=== PATIENT | female | born 1940 | race Caucasian/White ===

== ENCOUNTER → 2016-05-05 | Outpatient (CLI) | payer MEDICARE, OTHER ==
[2016-05-05 11:36] LABS: Appearance,Urine Clear (Clear); Bacteria,Urine Moderate /hpf; Bilirubin,Urine Negative (Negative); Glucose,Urine (UA) Negative (Negative); Ketones,Urine Negative (Negative); Leukocyte Esterase,Urine Negative (Negative); Mucus,Urine Rare /hpf; Nitrite,Urine Positive (Negative); Particle Count 24100; Protein,Urine Negative (Negative); RBC,Urine <1 /hpf (0-5); Specific Gravity,Urine 1.005 (1.001-1.035); Squamous Epithelial Cell,Urine 1 /hpf (0-4); UA Billing (MACRO vs. MICRO) MICRO; Urobilinogen,Urine <2.0 mg/dL (<2.0); WBC,Urine 2 /hpf (0-5)
[2016-05-05 11:44] LABS: Basophils # (A) 0.1 k/uL (0-0.2); Basophils % (A) 1 %; CH 30.3; CHCM 32.5; Eosinophils # (A) 0.1 k/uL (0-0.7); Eosinophils % (A) 2 %; HCT 40.8 % (34.0-46.0); HDW 2.15; HGB 13.1 gm/dL (11.4-16.0); Luc # (Auto) 0.15; Luc % (Auto) 2; Lymphocytes # (A) 0.9 k/uL (1.0-4.8); Lymphocytes % (A) 14 %; MCHC 32.1 g/dL (31.0-37.0); MCV 93.6 fL (80.0-100.0); Mean Platelet Volume 7.6; Monocytes # (A) 0.4 k/uL (0-1.0); Monocytes % (A) 7 %; Neutrophils # (A) 4.7 k/uL (1.3-7.7); Neutrophils % (A) 75 %; RBC 4.36 m/uL (3.80-5.40); RDW 13.5 % (11.5-15.5); WBC 6.3 k/uL (3.8-10.6); WBC (Perox) 6.59
[2016-05-05 12:22] LABS: Anion Gap 12 mmol/L; Blood Urea Nitrogen 23 mg/dL (7-17); Calcium 9.1 mg/dL (8.4-10.2); Carbon Dioxide 27 mmol/L (22-30); Chloride 102 mmol/L (98-107); Glucose 98 mg/dL (74-99); Non-African American GFR(MDRD) >60 (>60 ml/min/1.73 sqM); Potassium 4.3 mmol/L (3.5-5.1); Sodium 141 mmol/L (137-145)
== END | disposition home or self-care (01) ==
LOC: LABPAT 10:52
PROVIDERS: ATTEND Obstetrics & Gynecology
DX: Z01.810 Encounter for preprocedural cardiovascular examination (principal); N39.3 Stress incontinence (female) (male); I10 Essential (primary) hypertension; E03.9 Hypothyroidism, unspecified
CPT/HCPCS: 80048; 81001; 83735; 85025; 86850; 86900; 86901; 87077; 87086; 87186

== ENCOUNTER 2016-05-13 08:55 | Day surgery (SDC) | payer MEDICARE, OTHER ==
[2016-05-08 11:41] VITALS: BMI 23.6
--- NOTE | 2016-05-12 09:21 | HP ---
DATE OF ADMISSION: This is a 75-year-old white female, 2, para 2 -0-0-2, status post CHAYO/BSO in 1972 for benign disease. The patient has a long-standing history of symptomatic grade 4 cystocele, and has been using a pessary for many years. Patient states that at this time, she is not interested in continued pessary treatment and would like to proceed with surgical repair. She is menopausal, not sexually active, and is receiving low dose estrogen replacement therapy. She has no vasomotor symptoms. She states that she has at least one urinary tract infection monthly, does have the loss of urine with cough or sneeze and uses approximately 8 to 9 pads daily. Her last Pap smear was in the remote past and within normal limits. The remaining review of systems is negative. Past medical history is significant for anxiety, increasing symptomatic cystocele, hypertension and hypothyroidism, Parkinson's disease, and thyroid cancer in the past, she also has a right rib margin neuralgia. CURRENT MEDICATIONS: 1. Baby aspirin daily, discontinued 2 weeks ago. 2. Bactrim DS as needed for urinary tract infections. 3. Calcium chews daily. 4. Detrol 1 mg daily. 5. Premarin 0.9 mg oral tablet daily. 6. Prevacid 30 mg delayed release tablet daily. 7. Sinemet orally daily. 8. Synthroid 1/2 tab daily. 9. Toprol-XL 50 mg tablet once daily. 10. Vitamin B12, folic acid, vitamin D3 daily. 11. Zoloft orally daily. Allergies include AMOXICILLIN to which she reports a rash, ATIVAN to which she reports becoming delirious, DARVON to which she reports headaches and GI upset, ERYTHROMYCIN to which she reports a rash, IODINE to which she reports a rash, LEVAQUIN to which she reports diarrhea and GI upset, VASOTEC to which she reports a headache and cough and XANAX to which she reports becoming emotionally uncontrollable. Family history is significant for arrhythmia, cardiomegaly, hypertension, mitral valve prolapse, and progressive supranuclear palsy. Reproductive history is significant for 2 full term vaginal deliveries in the past, both unremarkable. SOCIAL HISTORY: Patient is , her 's name is Payam, she has never been a smoker. She denies alcohol or illicit drug use. On examination, this is a pleasant, but somewhat anxious individual, 5 feet 1.75 inches, 128 pounds, BMI 23, blood pressure 150/100, pulse 78. The general physical exam reveals normal skin tone, no rashes or lesions, HEENT exam is negative. No thyromegaly, no cervical lymphadenopathy, reasonably good dentition. Chest is clear to auscultation in all andersen anteriorly and posteriorly. Breast exam reveals breasts to be atrophic, symmetric, no skin dimpling or nipple discharge, no axillary adenopathy, no discernible lesions or masses. The abdomen is soft and nontender, no hepatosplenomegaly, active bowel sounds, no CVA tenderness. The chest is clear in all andersen anteriorly and posteriorly to auscultation. Cardiac exam reveals regular rate and rhythm with no murmur, click or rub. The extremities reveal good range of motion, good strength, normal peripheral pulses, no edema. On pelvic exam, the external genitalia is reasonably well estrogenized and age appropriate. There are no pelvic lesions or masses noted. There is a grade 4 cystocele noted, good vaginal cuff support, no obvious rectocele. Rectal exam reveals no hemorrhoids, no rectal masses, good sphincter tone, FIT negative stool. No obvious pelvic lymphadenopathy. IMPRESSION: Long-standing symptomatic grade 4 cystocele with incontinence. The patient has been evaluated by Dr. Cooper who believes that a sling procedure is also called for at the time of this grade 4 cystocele repair. The patient has been counseled thoroughly regarding the risks of surgery to include, but not be exclusive of bleeding, infection, perforation or damage to the bladder or ureters, anesthetic issues including aspiration, nerve damage, even . She understands the risk of possible urinary retention after our surgery and this has been discussed with Dr. Cooper as well. All questions are answered. We will proceed therefore with grade 4 cystocele repair along with a sling procedure per Dr. Cooper tomorrow on 05/13/2016 at [facility].
[~2016-05-13 08:55] MED LIST: FAMOTIDINE 20 MG/2 ML VIAL IV PRN; HYDROmorphone 1 MG/ML 1 ML SYRINGE IVP PRN; LACTATED RINGERS 1,000 ML IV SCH; LIDOCAINE 1% 20 ML VIAL (10MG/ML) FOR IV START INTRADERMA PRN; MIDAZOLAM 2 MG/2 ML VIAL IV PRN; ONDANSETRON 4 MG/2 ML VIAL IVP PRN; ceFAZolin 1,000 MG in DEXTROSE/WATER 1 50ML.BAG IV ONE
[2016-05-13] MEDS ORDERED: CARBIDOPA-LEVODOPA 25-100 MG 1 EACH TAB PO SCH ×2 (09:00→21:00)
[2016-05-13] MEDS ORDERED: LIDOCAINE 1% 20 ML VIAL (10MG/ML) FOR IV START INTRADERMA ONE (09:22)
[2016-05-13] MEDS ORDERED: fentaNYL (PF) 50 MCG/ML 2 ML AMP ONE (09:48)
[2016-05-13] MEDS ORDERED: PROPOFOL 10 MG/ML 20 ML VIAL IV ONE (09:48)
[2016-05-13] MEDS ORDERED: MIDAZOLAM 2 MG/2 ML VIAL ONE (09:48)
[2016-05-13] MEDS ORDERED: VASOPRESSIN 20 UNIT/ML 1 ML VIAL SQ ONE (10:09)
[2016-05-13] MEDS ORDERED: diphenhydrAMINE 50 MG/ML 1 ML VIAL IVP PRN ×2 (10:29→10:56)
[2016-05-13] MEDS ORDERED: NALOXONE 0.4 MG/ML 1 ML VIAL IV PRN (10:29)
[2016-05-13] MEDS ORDERED: ONDANSETRON 4 MG/2 ML VIAL IVP PRN (10:29)
[2016-05-13] MEDS ORDERED: KETOROLAC 30 MG/ML 1 ML VIAL IVP PRN (10:56)
--- NOTE | 2016-05-13 10:56 | P.OP ---
Date of Procedure: 05/13/16 Preoperative Diagnosis: Symptomatic cystocele, mixed urinary incontinence. Postoperative Diagnosis: Same Procedure(s) Performed: Cystocele repair, transvaginal tape Anesthesia: spinal Surgeon: Ebony Patton Cnc Programmer #1: Paco Cooper Estimated Blood Loss (ml): 150 IV fluids (ml): 700 Urine output (ml): 100 Pathology: none sent Condition: stable Disposition: PACU Description of Procedure: Patient is brought to the operating suite after duramorph spinal is placed without issue. She is put in the dorsal lithotomy position. Antibiotics given. The appropriate timeout is performed to assure proper patient and procedural identification. The perineal body and lower abdomen are prepped and draped in usual sterile fashion. Weighted speculum was placed into the vagina. The uterosacral cardinal ligament dimples are identified and grasped with Allis clamps. The vagina is opened between the 2 Allis clamps with a scalpel. The vaginal mucosa is then injected with a dilute Pitressin solution. Metzenbaum scissors are used to undermine the mucosa to approximately 1.5 cm inferior to the urethra. Allis clamps are used to hold the tissue bilaterally. A sponge rolled finger is used to separate the overlying mucosa from the underlying fascial plane. Vaughan catheter is then placed. 2-0 Vicryl sutures used in an interrupted fashion to bring the fascial edges together thereby eliminating the large grade 4 cystocele. Metzenbaum scissors are used to trim the redundant mucosa. At this time Dr. Boston sits and proceeds with his transvaginal tape procedure, please see separately dictated note for details. When this is completed, 2-0 Vicryl sutures used in a running locking fashion to close the vaginal mucosa for good approximation. Estimated blood loss 150 mL' s. Vaughan is clear. All sponge needle and enhancement counts are correct at the end of the procedure. Patient is brought back to recovery room in very good condition with stable vital signs including 106/55, pulse of 57. The vagina is packed with a half inch iodophor gauze with basic tracing and a. Head is placed.
[2016-05-13] MEDS ORDERED: LACTATED RINGERS 1,000 ML IV ONE (10:57)
--- NOTE | 2016-05-13 11:06 | P.OP ---
Date of Procedure: 05/13/16 Preoperative Diagnosis: Stress urinary incontinence Postoperative Diagnosis: Same Procedure(s) Performed: Transvaginal tape Anesthesia: YAN Surgeon: Paco Cooper Estimated Blood Loss (ml): 50 Pathology: none sent Condition: stable Disposition: PACU Indications for Procedure: The patient is a 75-year-old female with stress urinary incontinence and a grade [address] Patton will repair the cystocele and I'll do a transvaginal tape for her stress incontinence Description of Procedure: The patient was previously brought to the operating suite given a general anesthetic and Dr. Patton proceeded with an anterior repair 2 a very large cystocele. The vaginal mucosa was previously open. I dissect lateral the bladder neck bilaterally. I make 2 incisions in the inguinal crease at the level clitoris. I passed the transvaginal tape introducer through the inguinal incisions through the obturator foramen around into the vagina making sure not to buttonhole the vaginal mucosa. A irrigate the bladder to make sure there is no bleeding which would signal bladder injury. The urine is clear. I attached the transvaginal tape the introducers and pull back through the obturator foramen. The graft lay in the mid urethra. I excised the redundant after the inguinal crease and close inguinal crease with 4-[address] Patton then closes the vaginal mucosa. Vaginal packing is placed. The patient's awake and returned recovery room good condition. Blood loss for my procedures 50 mL. The urine remains clear postoperatively. The patient is awake and returned recovery room.
[2016-05-13] MEDS: METOPROLOL SUCCINATE (ER) 50 MG TAB.ER.24H PO SCH (14:22)
[2016-05-13] MEDS: CARBIDOPA-LEVODOPA 25-100 MG 1 EACH TAB PO SCH ×2 (14:23→20:58)
[2016-05-14] MEDS ORDERED: LEVOTHYROXINE 75 MCG TAB PO SCH (06:30)
[2016-05-14] MEDS ORDERED: CARBIDOPA-LEVODOPA 25-100 MG 1 EACH TAB PO SCH (07:00)
--- NOTE | 2016-05-14 07:27 | P.DS ---
Providers Date of admission: 05/13/16 Expected date of discharge: 05/14/16 Attending physician: Ebony Patton Primary care physician: [facility] Course: This is a 75-year-old white female who presented with an increasing history of stress urinary incontinence and grade 4 cystocele. She elected to undergo surgical palliation, cystocele repair along with transvaginal tape. She has multiple medical problems, and is managed by Dr. Bryan. Preoperative clearance was given. Please see my dictated history and physical for details. Patient was admitted and underwent a cystocele repair along with a transvaginal tape procedure per Dr. Boston. She did well intraoperatively, she was given a spinal with Duramorph to aid in postoperative analgesia. The vagina was packed with iodoform gauze, and Vaughan catheter placed. Please see our to separately dictated operative notes for further details. This morning the patient is doing well. Vaginal pack is removed and Vaughan catheter has been discontinued. She is tolerating regular diet and is passing flatus. Her pain is well managed. There is only scant vaginal flow noted. Vital signs have been normal and she has remained afebrile. There is no CVA tenderness, chest is clear, abdomen is soft and nontender. Bladder training has commenced this morning. If patient does well, she will be discharged home later today. She will resume all of her home medications, and use [id number] products as needed for any cramping or pain. I have asked her to call me with any urinary retention, with any vaginal bleeding, with any pain not alleviated by [id number] products, or indeed with any concerns or difficulties. She will follow-up in the office with me in 2 weeks, and will see Dr. Boston postoperatively as per his recommendations. Patient Condition at Discharge: Good Plan - Discharge Summary Discharge Medication List Aspirin [Adult Low Dose Aspirin EC] 2 tab PO DAILY 05/08/16 [History] Carbidopa-Levodopa 25-100 mg [Sinemet 25-100] 1 each PO QID 05/08/16 [History] Cholecalciferol [Vitamin D3] 2,000 unit PO BID 05/08/16 [History] Cyanocobalamin (Vitamin B-12) [Vitamin B-12] 1,000 mcg PO DAILY 05/08/16 [ History] Estrogens, Conjugated [Premarin] 0.3 mg PO DAILY 05/08/16 [History] L.acidoph,Paracasei, B.lactis [Probiotic] 1 each PO DAILY 05/08/16 [History] Levothyroxine Sodium [Synthroid] 0.15 mg PO DAILY 05/08/16 [History] Metoprolol Succinate (ER) [Toprol Xl] 50 mg PO DAILY 05/08/16 [History] Omeprazole [PriLOSEC] 20 mg PO AC-BID 05/08/16 [History] Sertraline [Zoloft] 50 mg PO DAILY 05/08/16 [History] Tolterodine [Detrol] 2 mg PO DAILY 05/08/16 [History] Follow up Appointment(s)/Referral(s): Ebony Patton MD [STAFF PHYSICIAN] - 2 Weeks
--- NOTE | 2016-05-14 08:37 | P.PN ---
Progress Note - Text Date: 05/14/2016 Time: 717 The patient is status post, cystocele repair Vital signs stable VAS: 0-10 Patient has no complaints of pain. The patient incurred some minimal itching yesterday, this itching is now subsiding. Pain meds to be managed by service.
[2016-05-14] MEDS: METOPROLOL SUCCINATE (ER) 50 MG TAB.ER.24H PO SCH (08:50)
[2016-05-14] MEDS ORDERED: ACETAMINOPHEN TAB 325 MG TAB PO PRN (10:58)
[2016-05-14] MEDS: CARBIDOPA-LEVODOPA 25-100 MG 1 EACH TAB PO SCH (12:32)
[2016-05-14 13:10] VITALS: BP 153/75; PULSE 72; RESP 16; TEMP 96.7
[2016-05-15] MEDS ORDERED: LEVOTHYROXINE 75 MCG TAB PO SCH (06:30)
== END 2016-05-14 13:45 | disposition home or self-care (01) ==
LOC: OR 08:55 → 6PED 11:12 → OR 05-14 13:45
PROVIDERS: ATTEND Obstetrics & Gynecology
DX: N81.10 Cystocele, unspecified (principal); N39.3 Stress incontinence (female) (male); I10 Essential (primary) hypertension; K21.9 Gastro-esophageal reflux disease without esophagitis; E03.9 Hypothyroidism, unspecified; G20 Parkinson's disease; F39 Unspecified mood [affective] disorder; F41.9 Anxiety disorder, unspecified; R41.3 Other amnesia; Z79.82 Long term (current) use of aspirin; Z79.899 Other long term (current) drug therapy; Z88.6 Allergy status to analgesic agent; Z88.1 Allergy status to other antibiotic agents; Z88.5 Allergy status to narcotic agent; Z88.0 Allergy status to penicillin; Z88.8 Allergy status to other drugs, medicaments and biological substances; Z86.73 Personal history of transient ischemic attack (TIA), and cerebral infarction without residual deficits; Z85.850 Personal history of malignant neoplasm of thyroid
CPT/HCPCS: 57240; 57288; C1771; J1200; J2405; J0690; 86850; 86900; 86901

== ENCOUNTER → 2017-01-12 | Outpatient (CLI) | payer MEDICARE, OTHER ==
--- NOTE | 2017-01-13 17:56 | BD ---
EXAMINATION TYPE: MG DEXA axial skeleton. DATE OF EXAM: 01/12/2017 COMPARISON: NONE CLINICAL HISTORY: 76-year-old female with known osteoporosis Height: 5 FT 2 1/2 IN Weight: 129 FRAX RISK QUESTIONS: Alcohol (3 or more units per day): NO Family History (Parent hip fracture): NO Glucocorticoids (More than 3mos): NO (Ex: prednisone, prednisolone, methylprednisolone, dexamethasone, and hydrocortisone). History of Fracture in Adulthood: NO Secondary Osteoporosis: 1. Type 1 Diabetes: NO 2. Hyperthyroidism: NO 3. Menopause before 45: YES 4. Malnutrition: NO 5. Chronic liver disease: NO Rheumatoid Arthritis: NO Current Tobacco Use: NO RISK FACTORS HISTORY OF: Postmenopausal woman: TOTAL HYST AGE 23 Take estrogen and/or progesterone medications: YES How lon YEARS MEDICATIONS: Thyroid Medications: YES Which medication: SYNTHROID How Lon YEARS Additional Medications: SYNTHROID, PREMARIN, CALCIUM, ZOLOFT, CINNAMIN, DETRAL, VIT D ,BABY ASPIRIN Additional History: THYROID CANCER AND PARKINSANS EXAM MEASUREMENTS: Bone mineral densitometry was performed using the [employer] System. Bone mineral density as measured about the Lumbar spine is: ----- L1-L4(G/cm2): 1.527 T Score Values are as follows: ----- L2: 1.9 ----- L3: 3.5 ----- L4: 4.2 ----- L1-L4: 2.9 BASELINE Bone mineral density about the R hip (g/cm2): 1.220 Bone mineral density about the L hip (g/cm2): 1.181 T Score values are as follows: -----R Neck: 1.3 -----L Neck: 1.0 -----R Total: 1.7 -----L Total: 1.3 BASELINE HERE IMPRESSION: Normal (Values between +1 and -1 indicate normal bone mass). Consider repeating this study in 5 year s or sooner if there is some new clinical indication. NOTE: T-SCORE=SD OF THE YOUNG ADULT MEAN.
--- NOTE | 2017-01-14 09:45 | MM ---
Reason for exam: screening (asymptomatic). Last mammogram was performed 1 year and 6 months ago. History: Patient is postmenopausal and history of other cancer. Taking estrogen for 34 years 1 month beginning at age 32. Physical Findings: A clinical breast exam by your physician is recommended on an annual basis and results should be correlated with mammographic findings. MG Screening Mammo w CAD Bilateral CC and MLO view(s) were taken. Prior study comparison: June 28, 2015, bilateral MG 3d screening mammo w/cad. May 24, 2014, bilateral MG screening mammo w CAD. There are scattered fibroglandular densities. There is chronic nodularity in the right breast. No significant changes when compared with prior studies. ASSESSMENT: Negative, BI-RAD 1 RECOMMENDATION: Routine screening mammogram of both breasts in 1 year.
== END | disposition home or self-care (01) ==
LOC: RADMAMWWP 14:23
PROVIDERS: ATTEND Internal Medicine Geriatric Medicine
DX: Z12.31 Encounter for screening mammogram for malignant neoplasm of breast (principal); M81.0 Age-related osteoporosis without current pathological fracture
CPT/HCPCS: 77080; G0202

== ENCOUNTER → 2017-05-04 | Outpatient (CLI) | payer MEDICARE, OTHER ==
--- NOTE | 2017-05-04 19:44 | CT ---
EXAMINATION TYPE: CT brain wo con DATE OF EXAM: 05/04/2017 COMPARISON: NONE HISTORY: Headache with right sided eye and shoulder pain post injury [address] DLP: 1121 mGycm Automated exposure control for dose reduction was used. FINDINGS: There is mild cerebral atrophy. There are a few small areas of hypodensity in the right internal caps ule that measure up to 5 mm. There is no midline shift. There is 6 mm area of hypodensity in the ante rior left internal capsule. There is no sign of intracranial hemorrhage. The calvarium is intact. The re is 1 cm area of hypodensity in the [place] left internal capsule. 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 NO HEMORRHAGE.
== END | disposition home or self-care (01) ==
LOC: RADCTMAIN 17:50
PROVIDERS: ATTEND Internal Medicine Geriatric Medicine
DX: I67.82 Cerebral ischemia (principal)
CPT/HCPCS: 70450

== ENCOUNTER → 2018-03-23 | Outpatient (CLI) | payer MEDICARE, OTHER ==
--- NOTE | 2018-03-23 13:57 | XR ---
EXAMINATION TYPE: XR ribs RT w pa chest xray DATE OF EXAM: 03/23/2018 CLINICAL HISTORY: Repeated falls with chest and right-sided rib pain. TECHNIQUE: Single frontal view of the chest is obtained. A frontal and oblique images of right-sided ribs are acquired. COMPARISON: None FINDINGS: There is no focal air space opacity, pleural effusion, or pneumothorax seen. The cardiac silhouette size is upper limits of normal with atherosclerotic thoracic aorta. The osseous structur es are intact. Cholecystectomy clips are noted. Dedicated images of right-sided ribs show acute minimally displaced fracture through posterior aspect right 10th rib. Just superior to this there is linear lucency suspicious for nondisplaced oblique fr acture through posterior lateral right ninth rib. Overlying soft tissue is unremarkable. IMPRESSION: 1. No acute cardiopulmonary process. 2. Acute minimally displaced fracture posterior lateral right 10th rib and acute nondisplaced oblique fracture posterior lateral right ninth rib.
--- NOTE | 2018-03-23 13:58 | XR ---
EXAMINATION TYPE: XR Hip Bilateral Complete DATE OF EXAM: 03/23/2018 CLINICAL HISTORY: Pain after several falls. TECHNIQUE: AP and frogleg views of the bilateral hips are obtained. COMPARISON: None. FINDINGS: There is no acute fracture/dislocation evident in either hip. Mild symmetric axial joint s pace loss is present bilaterally. No significant spurring is seen. Surgical clips and sutures overlie the visualized upper sacrum. Pubic symphysis is maintained. IMPRESSION: There is no acute fracture or dislocation in either hip.
== END | disposition home or self-care (01) ==
LOC: RADXRMAIN 13:02
PROVIDERS: ATTEND Internal Medicine
DX: S22.41XA Multiple fractures of ribs, right side, initial encounter for closed fracture (principal); R29.6 Repeated falls
CPT/HCPCS: 73521

== ENCOUNTER → 2018-08-13 | Outpatient (CLI) | payer MEDICARE, OTHER ==
[2018-08-13 19:03] LABS: Anion Gap 10.1 mmol/L (4.00-12.00); Carbon Dioxide 27.9 mmol/L (21.6-31.8); Potassium 3.8 mmol/L (3.5-5.5)
== END | disposition home or self-care (01) ==
LOC: LABWHC1 13:53
PROVIDERS: ATTEND Psychiatry & Neurology Neurology
DX: R41.0 Disorientation, unspecified (principal); R29.6 Repeated falls
CPT/HCPCS: 36415; 80048

== ENCOUNTER 2018-09-22 21:03 | Inpatient (IN) | payer MEDICARE, OTHER ==
[2018-09-22] MEDS ORDERED: SODIUM CHLORIDE 0.9% 500 ML 500 ML IV ONE (21:29)
[2018-09-22] MEDS ORDERED: QUEtiapine 50 MG TAB PO STA ×2 (21:40→23:29)
--- NOTE | 2018-09-22 21:56 | ED ---
Anxiety HPI - General Chief Complaint: Anxiety Stated Complaint: Petition Time Seen by Provider: 09/22/18 21:11 Source: police, EMS Mode of arrival: EMS - History of Present Illness Initial Comments: This patient is a 77-year-old woman with history of Parkinson's disease. She is brought for evaluation of 3 days of increasing anxiety/agitation as well as 3 days of insomnia. The patient did have recent medication change for her Parkinson's, her Sinemet was decreased from 4 times per day to 3 times per day and she was taken off of fludro cortisone. The patient is here with a caregiver who is giving most of the history. She does live at home with in-home caregivers who state that she has become increasingly agitated. The patient also is evidencing some delusional thought content that her is being mean to her, staff says that this is not the case. MD Complaint: anxiety, other -: days(s) Symptoms: other (Insomnia and agitation) Place: home Previous History of Same: Yes Severity: severe Quality: worsening Provoking factors: medication change Improves With: nothing Worsens With: nothing Associated symptoms: confusion - Related Data Home Medications: Home Medications Medication Instructions Recorded Confirmed Aspirin [Adult Low Dose Aspirin EC] 162 mg PO DAILY 05/08/16 09/22/18 Carbidopa-Levodopa 25-100 mg 1 tab PO HS 05/08/16 09/22/18 [Sinemet 25-100] Cholecalciferol [Vitamin D3] 2,000 unit PO HS 05/08/16 09/22/18 Estrogens, Conjugated [Premarin] 0.3 mg PO HS 05/08/16 09/22/18 L.acidoph,Paracasei, B.lactis 1 cap PO DAILY 05/08/16 09/22/18 [Probiotic] Omeprazole [PriLOSEC] 20 mg PO AC-BID 05/08/16 09/22/18 Calcium Carbonate [Calcium] 600 mg PO HS 09/22/18 09/22/18 Carbidopa-Levodopa 25-100 mg 2 tab PO BID 09/22/18 09/22/18 [Sinemet 25-100] Donepezil HCl [Aricept] 10 mg PO HS 09/22/18 09/22/18 Famotidine [Pepcid] 20 mg PO HS 09/22/18 09/22/18 Gabapentin [Neurontin] 200 mg PO HS 09/22/18 09/22/18 Levothyroxine Sodium [Synthroid] 150 mcg PO MOTUWETHFRSA 09/22/18 09/22/18 Levothyroxine Sodium [Synthroid] 225 mcg PO INTERIANO 09/22/18 09/22/18 Losartan Potassium [Cozaar] 25 mg PO BID 09/22/18 09/22/18 Metoprolol Succinate (ER) [Toprol 25 mg PO HS 09/22/18 09/22/18 Xl] Neclezyme-Forte 1 cap PO HS 09/22/18 09/22/18 Sertraline [Zoloft] 100 mg PO HS 09/22/18 09/22/18 Allergies/Adverse Reactions: Allergies Allergy/AdvReac Type Severity Reaction Status Date / Time diphenhydramine Allergy Unknown Verified 09/22/18 22:03 [From Benadryl] enalaprilat [From Vasotec] Allergy Unknown Verified 09/22/18 22:03 erythromycin base Allergy Unknown Verified 09/22/18 22:03 [From E-Mycin] hydrocodone Allergy Unknown Verified 09/22/18 22:03 ketorolac Allergy Unknown Verified 09/22/18 22:03 levofloxacin Allergy Unknown Verified 09/22/18 22:03 lorazepam [From Ativan] Allergy Unknown Verified 09/22/18 22:03 alprazolam [From Xanax] AdvReac Confusion Verified 09/22/18 22:03 codeine AdvReac Nausea & Verified 09/22/18 22:03 Vomiting diazepam [From Valium] AdvReac Unknown Verified 09/22/18 22:03 oxycodone [From Percocet] AdvReac Nausea & Verified 09/22/18 22:03 Vomiting Review of Systems ROS Statement: Those systems with pertinent positive or pertinent negative responses have been documented in the HPI. ROS Other: All systems not noted in ROS Statement are negative. Limitations: ROS unobtainable due to patients medical condition (ROS per caregiver) Constitutional: Denies: fever Respiratory: Denies: cough, dyspnea Cardiovascular: Denies: chest pain, palpitations, edema, syncope Gastrointestinal: Denies: abdominal pain, vomiting Musculoskeletal: Denies: back pain Neurological: Reports: as per HPI, confusion. Denies: headache Psychiatric: Reports: anxiety Past Medical History Past Medical History: Dementia, Hypertension Additional Past Medical History / Comment(s): parkisons, History of Any Multi-Drug Resistant Organisms: None Reported Past Surgical History: Hysterectomy Past Psychological History: Anxiety Smoking Status: Never smoker Past Alcohol Use History: None Reported Past Drug Use History: None Reported - Past Family History Father Family Medical History: No Reported History Mother Family Medical History: Coronary Artery Disease (CAD) General Exam General appearance: alert, anxious Head exam: Present: atraumatic, normocephalic Eye exam: Present: normal appearance, PERRL, EOMI. Absent: scleral icterus, conjunctival injection ENT exam: Present: mucous membranes dry Neck exam: Present: normal inspection, full ROM Respiratory exam: Present: normal lung sounds bilaterally. Absent: respiratory distress, wheezes, rales, rhonchi, stridor Cardiovascular Exam: Present: regular rate, normal rhythm, normal heart sounds. Absent: systolic murmur, diastolic murmur, rubs, gallop GI/Abdominal exam: Present: soft. Absent: tenderness, guarding, rebound Extremities exam: Present: normal inspection, normal capillary refill. Absent: pedal edema, calf tenderness Back exam: Present: normal inspection. Absent: vertebral tenderness Neurological exam: Present: alert, CN II-XII intact, other (Patient is tremulous). Absent: oriented X3 (Patient is oriented only to person), motor sensory deficit Psychiatric exam: Present: agitated Skin exam: Present: warm, dry, intact, normal color. Absent: rash Course Vital Signs 09/22/18 09/23/18 21:12 02:50 Temperature 98 F Pulse Rate 98 81 Respiratory 24 16 Rate Blood Pressure 174/100 127/82 O2 Sat by Pulse 100 100 Oximetry - Reevaluation(s) Reevaluation #1: 09/23/18 01:59 Patient continues to have insomnia and delusional thought content. Patient remains agitated despite Seroquel. Dr. Irvin galdamez to discuss admission Medical Decision Making - Medical Decision Making Patient is 77-year-old woman coming for evaluation after 3 days of insomnia and worsening agitation with psychotic symptoms. Patient recently had Seroquel added to her regimen though they had not been able to fern picker this medication from the pharmacy yet. She is given initial dose of this and she was briefly asleep then had been aroused and continued to be psychotic. Additional dose given. We had considered adding benzodiazepine but the patient has reportedly had paradoxic reaction to this medication in the past. The patient starting to have some improvement with additional Seroquel. Case discussed with , who will admit patient to have neurology and psychiatry consultation - Lab Data Result diagrams: 09/22/18 21:50 09/22/18 21:50 Lab Results 09/22/18 09/22/18 09/22/18 Range/Units 21:50 21:50 21:50 WBC 9.1 (3.8-10.6) k/uL RBC 4.41 (3.80-5.40) m/uL Hgb 12.2 (11.4-16.0) gm/dL Hct 39.9 (34.0-46.0) % MCV 90.4 (80.0-100.0) fL MCH 27.8 (25.0-35.0) pg MCHC 30.7 L (31.0-37.0) g/dL RDW 14.0 (11.5-15.5) % Plt Count 286 (150-450) k/uL Neutrophils % 73 % Lymphocytes % 15 % Monocytes % 9 % Eosinophils % 1 % Basophils % 0 % Neutrophils # 6.6 (1.3-7.7) k/uL Lymphocytes # 1.3 (1.0-4.8) k/uL Monocytes # 0.8 (0-1.0) k/uL Eosinophils # 0.1 (0-0.7) k/uL Basophils # 0.0 (0-0.2) k/uL PT (9.0-12.0) sec INR (<1.2) APTT (22.0-30.0) sec Sodium 140 (137-145) mmol/L Potassium 3.8 (3.5-5.1) mmol/L Chloride 106 (98-107) mmol/L Carbon Dioxide 23 (22-30) mmol/L Anion Gap 11 mmol/L BUN 25 H (7-17) mg/dL Creatinine 0.94 (0.52-1.04) mg/dL Est GFR (CKD-EPI)AfAm 68 (>60 ml/min/1.73 sqM) Est GFR (CKD-EPI)NonAf 59 (>60 ml/min/1.73 sqM) Glucose 94 (74-99) mg/dL Plasma Lactic Acid Lauri 1.4 (0.7-2.0) mmol/L Calcium 9.0 (8.4-10.2) mg/dL Total Bilirubin 0.6 (0.2-1.3) mg/dL AST 46 H (14-36) U/L ALT 20 (9-52) U/L Alkaline Phosphatase 113 (38-126) U/L Troponin I (0.000-0.034) ng/mL Total Protein 7.8 (6.3-8.2) g/dL Albumin 4.4 (3.5-5.0) g/dL Urine Color Urine Appearance (Clear) Urine pH (5.0-8.0) Ur Specific S[place] (1.001-1.035) Urine Protein (Negative) Urine Glucose (UA) (Negative) Urine Ketones (Negative) Urine Blood (Negative) Urine Nitrite (Negative) Urine Bilirubin (Negative) Urine Urobilinogen (<2.0) mg/dL Ur Leukocyte Esterase (Negative) Urine RBC (0-5) /hpf Urine WBC (0-5) /hpf Ur Squamous Epith Cells (0-4) /hpf Urine Mucus (None) /hpf 09/22/18 09/22/18 09/23/18 Range/Units 21:50 21:50 00:00 WBC (3.8-10.6) k/uL RBC (3.80-5.40) m/uL Hgb (11.4-16.0) gm/dL Hct (34.0-46.0) % MCV (80.0-100.0) fL MCH (25.0-35.0) pg MCHC (31.0-37.0) g/dL RDW (11.5-15.5) % Plt Count (150-450) k/uL Neutrophils % % Lymphocytes % % Monocytes % % Eosinophils % % Basophils % % Neutrophils # (1.3-7.7) k/uL Lymphocytes # (1.0-4.8) k/uL Monocytes # (0-1.0) k/uL Eosinophils # (0-0.7) k/uL Basophils # (0-0.2) k/uL PT 10.0 (9.0-12.0) sec INR 0.9 (<1.2) APTT 22.1 (22.0-30.0) sec Sodium (137-145) mmol/L Potassium (3.5-5.1) mmol/L Chloride (98-107) mmol/L Carbon Dioxide (22-30) mmol/L Anion Gap mmol/L BUN (7-17) mg/dL Creatinine (0.52-1.04) mg/dL Est GFR (CKD-EPI)AfAm (>60 ml/min/1.73 sqM) Est GFR (CKD-EPI)NonAf (>60 ml/min/1.73 sqM) Glucose (74-99) mg/dL Plasma Lactic Acid Lauri (0.7-2.0) mmol/L Calcium (8.4-10.2) mg/dL Total Bilirubin (0.2-1.3) mg/dL AST (14-36) U/L ALT (9-52) U/L Alkaline Phosphatase (38-126) U/L Troponin I <0.012 (0.000-0.034) ng/mL Total Protein (6.3-8.2) g/dL Albumin (3.5-5.0) g/dL Urine Color Yellow Urine Appearance Clear (Clear) Urine pH 7.0 (5.0-8.0) Ur Specific [place] 1.010 (1.001-1.035) Urine Protein Negative (Negative) Urine Glucose (UA) Negative (Negative) Urine Ketones 1+ H (Negative) Urine Blood Trace H (Negative) Urine Nitrite Negative (Negative) Urine Bilirubin Negative (Negative) Urine Urobilinogen <2.0 (<2.0) mg/dL Ur Leukocyte Esterase Negative (Negative) Urine RBC <1 (0-5) /hpf Urine WBC <1 (0-5) /hpf Ur Squamous Epith Cells 1 (0-4) /hpf Urine Mucus Rare H (None) /hpf - EKG Data -: EKG Interpreted by Me EKG shows normal: sinus rhythm, axis (Normal), intervals (Normal), QRS complexes (Normal), ST-T waves (Normal) Rate: normal (Rate 79 bpm) Interpretation: normal EKG Disposition Clinical Impression: Acute psychosis, Parkinson disease Disposition: ADMITTED IP TO THIS [facility] Condition: Poor Is patient prescribed a controlled substance at d/c from ED?: No
[2018-09-22 22:11] LABS: Basophils % (A) 0 %; Eosinophils # (A) 0.1 k/uL (0-0.7); Eosinophils % (A) 1 %; HCT 39.9 % (34.0-46.0); HGB 12.2 gm/dL (11.4-16.0); Lymphocytes # (A) 1.3 k/uL (1.0-4.8); Lymphocytes % (A) 15 %; MCH 27.8 pg (25.0-35.0); MCHC 30.7 g/dL (31.0-37.0); MCV 90.4 fL (80.0-100.0); Mean Platelet Volume 7.5; Monocytes # (A) 0.8 k/uL (0-1.0); Monocytes % (A) 9 %; Neutrophils # (A) 6.6 k/uL (1.3-7.7); Neutrophils % (A) 73 %; Platelet Count 286 k/uL (150-450); RBC 4.41 m/uL (3.80-5.40); WBC 9.1 k/uL (3.8-10.6)
[2018-09-22 22:14] LABS: Albumin 4.4 g/dL (3.5-5.0); Potassium 3.8 mmol/L (3.5-5.1); Total Bilirubin 0.6 mg/dL (0.2-1.3); Total Protein 7.8 g/dL (6.3-8.2)
[2018-09-22 22:22] LABS: INR 0.9 (<1.2); Partial Thromboplastin Time 22.1 sec (22.0-30.0)
[2018-09-23 00:21] LABS: Appearance,Urine Clear (Clear); Bilirubin,Urine Negative (Negative); Blood,Urine Trace (Negative); Color,Urine Yellow; Glucose,Urine (UA) Negative (Negative); Ketones,Urine 1+ (Negative); Leukocyte Esterase,Urine Negative (Negative); Mucus,Urine Rare /hpf; Nitrite,Urine Negative (Negative); Protein,Urine Negative (Negative); RBC,Urine <1 /hpf (0-5); Squamous Epithelial Cell,Urine 1 /hpf (0-4); Urobilinogen,Urine <2.0 mg/dL (<2.0)
--- NOTE | 2018-09-23 01:01 | CT ---
EXAM: CT Head Without Intravenous Contrast CLINICAL HISTORY: ITS.REASON CT Reason: altered mental status TECHNIQUE: Axial computed tomography images of the head/brain without intravenous contrast. CTDI is 49.1 mGy and DLP is 1105.4 mGy-cm. This CT exam was performed using one or more of the following dose reduction techniques: automated exposure control, adjustment of the mA and/or kV according to patient size, and/or use of iterative reconstruction technique. COMPARISON: CT head dated 05/04/2017. FINDINGS: Brain: No evidence of acute intracranial hemorrhage. Grossly unchanged mild presumed small vessel ischemic disease. Ventricles: Unremarkable. No ventriculomegaly. Bones/joints: No acute fracture. Soft tissues: Unremarkable. Vasculature: Calcification of the distal internal carotid arteries and vertebrobasilar system. Sinuses: Unremarkable as visualized. Mastoid air cells: Unremarkable as visualized. IMPRESSION: 1. No evidence of acute intracranial hemorrhage. 2. Grossly unchanged mild presumed small vessel ischemic disease.
[2018-09-23] MEDS ORDERED: QUEtiapine 100 MG TAB PO STA (01:25)
[2018-09-23] MEDS ORDERED: CARBIDOPA-LEVODOPA 25-100 MG 1 EACH TAB PO STA (01:32)
[2018-09-23] MEDS ORDERED: METOPROLOL SUCCINATE (ER) 25 MG TAB.ER.24H PO STA (01:36)
[2018-09-23] MEDS ORDERED: NALOXONE 0.4 MG/ML 1 ML VIAL IV PRN (02:42)
[2018-09-23] MEDS ORDERED: ACETAMINOPHEN TAB 325 MG TAB PO PRN (02:42)
--- NOTE | 2018-09-23 02:50 | XR ---
EXAM: XR Chest, 1 View CLINICAL HISTORY: ITS.REASON XR Reason: altered mental status TECHNIQUE: Frontal view of the chest. COMPARISON: Chest x-ray dated 03/23/2018. FINDINGS: Lungs: Unremarkable. The lungs are clear. Pleural space: Unremarkable. No pneumothorax. Heart: Mild cardiomegaly. Mediastinum: Unremarkable. Bones/joints: Unremarkable. Vasculature: Mild calcification of the aortic arch. IMPRESSION: No acute findings.
[2018-09-23] MEDS: LEVOTHYROXINE 50 MCG TAB PO SCH (10:47)
[2018-09-23] MEDS: PANTOPRAZOLE 40 MG TABLET PO SCH ×2 (10:47→19:01)
[2018-09-23] MEDS: LOSARTAN 25 MG TAB PO SCH ×3 (10:52→22:34)
[2018-09-23] MEDS: CARBIDOPA-LEVODOPA 25-100 MG 1 EACH TAB PO SCH ×3 (10:52→22:33)
[2018-09-23] MEDS: ASPIRIN 81 MG PO SCH ×2 (10:52→11:03)
[2018-09-23 12:05] VITALS: BMI 21.6
--- NOTE | 2018-09-23 13:15 | P.HPIM ---
History of Present Illness H&P Date: 09/23/18 Chief Complaint: Change mental status, severe agitation and confusion, advanced Parkinson di 77-year-old female one of my office patient with past medical history of Parkinson disease, hypertension and dementia who has been cared for at home by family and caregiver [facility] night with 3 days increase worsening mental status with agitation anxiety insomnia not been able to rest worsening confusion with diffusion hallucination and worsening confusion. Apparently had slight decrease in Sinemet recently and was taking off Florinef according to the caregiver patient become much worse her daughter has travel out of town the last 48 hours and the caregiver has been taking care of her the whole time patient become more diffusional hallucinating no competitive behavior that trying to get out of the chair out of bed with no balance and recent fall with major injury. Patient ended up coming to the emergency department her workup originally with CAT scan of the brain showed small vessel disease only with no growth or hemorrhage, UA was negative chest x- ray didn't show any infiltrate and lab was negative. Patient was admitted to the hospital will consult neuro and psych and was start PT quickly and if worsening symptom might need to be moved to one of the geriatric psych unit. Review of Systems CONSTITUTIONAL: Well-developed no acute respiratory distress. Very thin had lost quite bed weight. EYES: No icterus sclerae, no conjunctivitis. EARS, NOSE, MOUTH, THROAT, and FACE: No sore throat, lymphadenopathy, carotid bruits or deformity. RESPIRATORY: No SOB cough or wheezes. CARDIOVASCULAR: No CP, Palpitation, PND, Orthopnea, or angina. GASTROINTESTINAL: No Abd pain, Nausea or vomiting, no Diarrhea or constipation, No GI Bleed, no distention or masses. GENITOURINARY: Negative for Hematuria or UTI, no kidney stones. INTEGUMENT/BREAST: Negative for any muscular injury with mild osteoarthritis.. HEMATOLOGIC/LYMPHATIC: Negative for bleed or purpura. MUSCULOSKELTAL: Mild arthralgia and myalgia. NEURLOGICAL: No seizure but significant change mental status with significant tr emor abnormal gait imbalance. BEHAVIORAL/PSYCH: Confusion and effusion and worsening mental status.. ENDOCRINE: Negative. Past Medical History Past Medical History: Dementia, Hypertension Additional Past Medical History / Comment(s): parkisons, thyroid cancer History of Any Multi-Drug Resistant Organisms: None Reported Past Surgical History: Bladder Surgery, Hysterectomy Additional Past Surgical History / Comment(s): thyroid removed Past Psychological History: Anxiety Smoking Status: Never smoker Past Alcohol Use History: None Reported Past Drug Use History: None Reported - Past Family History Father Family Medical History: No Reported History Mother Family Medical History: Coronary Artery Disease (CAD) Medications and Allergies Home Medications Medication Instructions Recorded Confirmed Type Aspirin [Adult Low Dose Aspirin EC] 162 mg PO DAILY 05/08/16 09/22/18 History Carbidopa-Levodopa 25-100 mg 1 tab PO HS 05/08/16 09/22/18 History [Sinemet 25-100] Cholecalciferol [Vitamin D3] 2,000 unit PO HS 05/08/16 09/22/18 History Estrogens, Conjugated [Premarin] 0.3 mg PO HS 05/08/16 09/22/18 History L.acidoph,Paracasei, B.lactis 1 cap PO DAILY 05/08/16 09/22/18 History [Probiotic] Omeprazole [PriLOSEC] 20 mg PO AC-BID 05/08/16 09/22/18 History Calcium Carbonate [Calcium] 600 mg PO HS 09/22/18 09/22/18 History Carbidopa-Levodopa 25-100 mg 2 tab PO BID 09/22/18 09/22/18 History [Sinemet 25-100] Donepezil HCl [Aricept] 10 mg PO HS 09/22/18 09/22/18 History Famotidine [Pepcid] 20 mg PO HS 09/22/18 09/22/18 History Gabapentin [Neurontin] 200 mg PO HS 09/22/18 09/22/18 History Levothyroxine Sodium [Synthroid] 150 mcg PO MOTUWETHFRSA 09/22/18 09/22/18 History Levothyroxine Sodium [Synthroid] 225 mcg PO INTERIANO 09/22/18 09/22/18 History Losartan Potassium [Cozaar] 25 mg PO BID 09/22/18 09/22/18 History Metoprolol Succinate (ER) [Toprol 25 mg PO HS 09/22/18 09/22/18 History Xl] Neclezyme-Forte 1 cap PO HS 09/22/18 09/22/18 History Sertraline [Zoloft] 100 mg PO HS 09/22/18 09/22/18 History Allergies Allergy/AdvReac Type Severity Reaction Status Date / Time diphenhydramine Allergy Unknown Verified 09/22/18 22:03 [From Benadryl] enalaprilat [From Vasotec] Allergy Unknown Verified 09/22/18 22:03 erythromycin base Allergy Unknown Verified 09/22/18 22:03 [From E-Mycin] hydrocodone Allergy Unknown Verified 09/22/18 22:03 ketorolac Allergy Unknown Verified 09/22/18 22:03 levofloxacin Allergy Unknown Verified 09/22/18 22:03 lorazepam [From Ativan] Allergy Unknown Verified 09/22/18 22:03 alprazolam [From Xanax] AdvReac Confusion Verified 09/22/18 22:03 codeine AdvReac Nausea & Verified 09/22/18 22:03 Vomiting diazepam [From Valium] AdvReac Unknown Verified 09/22/18 22:03 oxycodone [From Percocet] AdvReac Nausea & Verified 09/22/18 22:03 Vomiting Physical Exam Vitals: Vital Signs Temp Pulse Pulse Resp BP BP Pulse Ox 09/23/18 08:38 97.6 F 106 H 15 161/69 98 09/23/18 02:50 81 16 127/82 100 09/22/18 21:12 98 F 98 24 174/100 100 Intake and Output 09/22/18 09/23/18 09/23/18 22:59 06:59 14:59 Intake Total 0 Balance 0 Intake: Oral 0 Other: Weight 58.967 kg General Appearance: Alert, cooperative, no distress, appears stated age. Very thin look like lost quite bed weight. Neck HEENT: Supple, no lymphadenopathy, no thyroid enlargement, no carotid bruits. Lungs: Clear to auscultation without crackles or wheezes mild rhonchi in the bases. Chest Wall: Decrease expansion with deep inspiration no tenderness and no deformity was found on exam, no costochondral pain or discomfort. Heart: Regular rate and rhythm, S1, S2 normal, no murmur, rub or gallop. Back: Significant curvature with scoliosis mild tenderness. Abdomen: Soft, non-tender, bowel sounds active all four quadrants, no masses, no organomegaly. Extremities: Trace edema and decreased pulses dorsalis pedis. Pulses: 2+ and symmetric. Skin: Skin color, texture, tugor normal, no rashes or lesions. Neurologic: Alert severely confuse oriented 1 Cranney nerve II-12 are intact moving all her 4 extremity has significant resting tremor severe abnormal facial expression not been able to do gait exam. Results CBC & Chem 7: 09/22/18 21:50 09/22/18 21:50 Labs: Abnormal Lab Results - Last 24 Hours (Table) 09/22/18 09/22/18 09/23/18 Range/Units 21:50 21:50 00:00 MCHC 30.7 L (31.0-37.0) g/dL BUN 25 H (7-17) mg/dL AST 46 H (14-36) U/L Urine Ketones 1+ H (Negative) Urine Blood Trace H (Negative) Urine Mucus Rare H (None) /hpf Thrombosis Risk Factor Assmnt - DVT/VTE Prophylaxis DVT/VTE Prophylaxis: Pharmacologic Prophylaxis ordered, Mechanical Prophylaxis ordered Assessment and Plan Plan: 1 change mental status: With possibility of acute severe encephalopathy etiology is not a clear whether it's central nervous system, medication related, worsening Parkinson, worsening Alzheimer disease or metabolic. We'll consult neurology and consult psych at this point. 2 severe advanced Parkinson disease: With medication adjusted recently patient has been on carbidopa levodopa 25/100 mg 2 tablets twice a day and one tablet daily at bedtime still seen Dr. Garduno in the office within be seen in the patient Niro for more adjustment at this point if she goes home. 3 worsening confusion and delusion and psychosis with her current complaint is agreeable by neurology was start patient on Risperdal 0.5 mg twice a day and advance the dose more. 4 Alzheimer disease: With worsening symptoms patient has been on Aricept we'll continue medication and maybe adding Namenda can be helpful at this point if agreeable by neurology. 5 hypothyroidism: Patient remain on levothyroxine 152-25 g daily. 6 hypertension: On metoprolol XL 25 mg a day along with losartan 25 mg twice a day continue medication. 7 chronic neuropathy: Has been on gabapentin which patient probably having some sort of side effect to gabapentin should be discontinued completely if possible. 8 chronic depression: With worsening symptoms and not control currently been on sertraline 100 mg daily awaiting for psych for further adjustment medication if not will add Cymbalta 30 mg daily. 9 severe GERD/GI prophylaxis: Patient will be on pantoprazole 40 mg twice a day. 10 DVT prophylaxis: Patient will be on heparin 5000 units obtain his twice a day. CODE STATUS: Full code. Admit patient to inpatient status for more than 2 nights.
--- NOTE | 2018-09-23 17:06 | P.CN ---
Psychiatric Consult - . Consult date: 09/23/18 Consult:: 09/23/18 16:50 Identification: Patient is a 77-year-old female brought into the hospital by her caregivers due to increasing anxiety, agitation Reason for Consult: Psychosis History of Present Illness: Patient's chart was reviewed and the patient was seen and interviewed no family members were present, her primary nurse was present during the interview. Patient is unable to give a history. Per the nurse the patient refused her medications, was agitated this morning attempting to bite the sitter. Patient was agitated in the emergency room and received quetiapine 50 mg at 9:40 PM, 11:40 PM and 100 mg at 1:25 AM. Patient apparently was sleeping this morning and became agitated later in the day. While I was with the patient she was not agitated but she refused her meds was not able to respond to questions in any relevant fashion. Patient is diagnosed with Parkinson's, is currently on Sinemet as well as Aricept and Zoloft. Patient's Sinemet dose was recently decreased by her neurologist several days ago when she went for a visit the reasons for the decrease in the Sinemet are unclear. Patient apparently became agitated shortly after that visit, was not sleeping for 3 days and thought that her was doing something to her. Patient apparently thought staff was trying to hurt her earlier today when she tried to bite the sitter. Past Psychiatric History: Unknown Past Medical/Surgical History: Patient has a history of hypertension, Parkinson's disease, thyroid cancer status post thyroidectomy, status post bladder surgery status post hysterectomy, neurocognitive disorder unknown etiology Family History: Unknown Social History: Patient lives with her and they both have caregivers 24 hours a day 7 days a week. Other social history is not available at this time as the patient is not able to provide Substance Use History: unknown Mental status:Appearance/Attitude: Patient is dressed in a hospital gown, lying in a hospital bed, she made no eye contact and could respond to some commands Behavior: Patient was slightly restless, not responding to my questions, at times there is an obvious tremor in her right arm Speech/Language: Patient was not spontaneous in her speech, spoke in a soft voice Thought Process: Patient was not relevant in her responses Thought Content: Patient does not appear to be responding to auditory or visual hallucinations but patient did think that nursing staff earlier was trying to hurt her and apparently felt that her was being mean to her at home, has been combative and agitated and had not been sleeping for 3 days prior to admission. Suicidal/Homicidal Ideation: Patient is not making any suicidal statements or doing any self-harm behavior no evidence of any homicidal ideation however the patient is combative at times. Sensorium/Cognition: Patient responded to her name, was easily aroused, did not respond to questions regarding where she was, why she was here and further cognitive testing was not performed Mood/Affect: Patient's mood is bland her affect is constricted Insight/Judgment: Patient's insight and judgment are not assessable Assessment: Patient has a history of Parkinson's disease, is treated with Sinemet and recently her dose was decreased is unclear why the dose was decreased. Per the patient's caregivers she has not slept for 3 days prior to admission was becoming increasingly anxious and agitated home thinking that her was mean to her and became quite combative in the emergency room requiring quetiapine a total amount of 200 mg. Patient on the unit again became combative when she thought nursing staff was going to hurt her, she is refused her medications. 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 I would not recommend using Risperdal to target her paranoia and agitation due to the fact that it may increase her motor symptoms, would suggest using quetiapine starting at a low dose of 12.5-25 mg as needed for agitation and to assist with sleep would use a low dose around 8 PM. Nuplazid is certainly another option to target her psychotic symptoms. Will await neurology's input regarding the use of antipsychotics to target her agitation and paranoia. Patient is not a candidate for transfer to an inpatient psychiatric unit, a possibility would be a medical psychiatric unit if the paranoia and agitation do not respond to medication adjustments. Will follow the patient as needed. 09/23/18 16:50 09/23/18 16:53
--- NOTE | 2018-09-23 20:42 | P.CNNES ---
History of Present Illness Consult date: 09/23/18 Reason for Consult: acute psychosis Chief complaint: acute psychosis History of Present Illness: REFERRING PHYSICIAN: Dr. Polanco HISTORY OF PRESENT ILLNESS: Thank you for allowing me to evaluate Ms. Ila Palacios. No family at bedside. Patient unable to provide information. As such, H&P and psychiatry's note used as reference. Ms. Palacios is a 77 year-old woman with PMHx of Parkinson's disease, thyroid cancer, dementia, hypertension, brought to [facility] for worsening mental status x 3 days along with agitation, anxiety, insomnia. Per H&P, patient's dose of Sinemet was decreased recently and taken off Florinef (unclear why patient is on Florinef, maybe for orthostatic hypotension?), after which patient became more delusional, having hallucinations and combative behavior. Patient was trying to get out of the chair and bed. Reports no history of falls. Patient came to ED, CT brain with no acute intracranial process. Labs largely unremarkable. All information obtained via what's available on EMR PAST MEDICAL HISTORY: Parkinson's disease, thyroid cancer, dementia, hypertension PAST SURGICAL HISTORY: Thyroidectomy, bladder surgery, hysterectomy HOME MEDICATIONS: Estrogen, Vitamin D, ASA, Omeprazole, Sinemet 25-100 1 tab BID, Sinemet 25-100 1 tab qhs, Losartan 25mg BID Gabapentin 200mg qhs, Famotidine 20mg qhs, Donepezil 10mg qhs, Sertraline 100mg qhs, Metoprolol, levothyroxine SOCIAL HISTORY: No smoking/EtOH/drug abuse history reported FAMILY HISTORY: Unknown (?Mother with CAD?) REVIEW OF SYSTEMS: PHYSICAL EXAMINATION: VITAL SIGNS: T 97.6 HR 106 RR 15 BP 161/69 O2 100% on RA GEN.: Lying in bed, very thin, appears anxious, waving her arms and grabbing/staring at her blanket. No obvious tremors noted during this eval. HEENT: NCAT, sclera without icterus NECK: Supple SKIN AND EXTREMITIES: Warm to touch, no edema Neuro: MENTAL STATUS: Patient awake and alert, states her name but does not answer other questions appropriately. No gaze preference. CRANIAL NERVES II THROUGH XII: II: Pupils are equal and reactive to light symmetrically. Blinks to threat inb oth eyes. III, IV, : No ptosis. Extraocular movements grossly full. VII. No obvious facial asymmetry. MOTOR: Decreased bulk. Unable to examine as patient will not allow me to even touch her. SENSORY: Grossly intact to touch REFLEXES/COORDINATION/GAIT: Unable to examine DIAGNOSTIC TESTING: Laboratory: WBC 9.1 Hgb 12.2 Plt 286 Na 140 K 3.8 Cl 106 CO2 23 BUN 25 Cr 0.94 AST 46 ALT 20 Trops <0.012 Urine Ketones 1+, WBC <1, RBC <1, negative leukesterase Imaging: CT Head w/o contrast: 1. No evidence of acute intracranial hemorrhage 2. Grossly unchanged mild presumed small vessel ischemic disease ASSESSMENT and PLAN: Ms. Palacios is a 77 year-old woman with PMHx of Parkinson's disease, thyroid cancer, dementia, hypertension, brought to [facility] for worsening mental status x 3 days along with agitation, anxiety, insomnia in the setting of patient's medications changed recently. I assume that patient's Sinemet dose was decreased due to its side effects, one of which can be hallucinations/delusions. The fact that patient has not slept for several days would contribute to worsening mental status/delirium. Psychosis in patients with Parkinsons' disease is common. More than 50% of patients with PD will develop psychosis at some point over the course of their disease. Visual hallucinations are common, occurring in up to one-third of patients with PD on chronic dopaminergic therapy; delusions and auditory hallucinations are less common, occurring in 5% to 10% of patients. Typical antipsychotics will worsen motor symptoms in PD patients due to high D2-receptor antagonism of typical antipsychotics. Studies have shown atypical antipsychotics such as Clozapine and Quetiapine with low D2- receptor affinity to help improve psychotic symptoms in PD psychosis patients without dramatic worsening of motor symptoms. There is one medication that is FDA approved and indicated to treat hallucinations and delusions associated with PD psychosis, pimavanserin (Nuplazid), but this medication should be considered in an outpatient setting. PD psychosis can be a significant source of distress t o patients and caregivers, and patient could require long-term care. RECOMEMNDATIONS: - Appreciate psychiatry recs. Agree to NOT use Risperdal or Haldol for agitation. Agree with Quetiapine at its lowest dose as needed to assist with sleep and for agitation. - Avoid using anticholinergics - Neurology will sign off at this time. Please feel free to contact me again with additional questions or concerns. Past Medical History Past Medical History: Dementia, Hypertension Additional Past Medical History / Comment(s): parkisons, thyroid cancer History of Any Multi-Drug Resistant Organisms: None Reported Past Surgical History: Bladder Surgery, Hysterectomy Additional Past Surgical History / Comment(s): thyroid removed Past Psychological History: Anxiety Smoking Status: Never smoker Past Alcohol Use History: None Reported Past Drug Use History: None Reported - Past Family History Father Family Medical History: No Reported History Mother Family Medical History: Coronary Artery Disease (CAD) Medications and Allergies Home Medications Medication Instructions Recorded Confirmed Type Aspirin [Adult Low Dose Aspirin EC] 162 mg PO DAILY 05/08/16 09/22/18 History Carbidopa-Levodopa 25-100 mg 1 tab PO HS 05/08/16 09/22/18 History [Sinemet 25-100] Cholecalciferol [Vitamin D3] 2,000 unit PO HS 05/08/16 09/22/18 History Estrogens, Conjugated [Premarin] 0.3 mg PO HS 05/08/16 09/22/18 History L.acidoph,Paracasei, B.lactis 1 cap PO DAILY 05/08/16 09/22/18 History [Probiotic] Omeprazole [PriLOSEC] 20 mg PO AC-BID 05/08/16 09/22/18 History Calcium Carbonate [Calcium] 600 mg PO HS 09/22/18 09/22/18 History Carbidopa-Levodopa 25-100 mg 2 tab PO BID 09/22/18 09/22/18 History [Sinemet 25-100] Donepezil HCl [Aricept] 10 mg PO HS 09/22/18 09/22/18 History Famotidine [Pepcid] 20 mg PO HS 09/22/18 09/22/18 History Gabapentin [Neurontin] 200 mg PO HS 09/22/18 09/22/18 History Levothyroxine Sodium [Synthroid] 150 mcg PO MOTUWETHFRSA 09/22/18 09/22/18 History Levothyroxine Sodium [Synthroid] 225 mcg PO INTERIANO 09/22/18 09/22/18 History Losartan Potassium [Cozaar] 25 mg PO BID 09/22/18 09/22/18 History Metoprolol Succinate (ER) [Toprol 25 mg PO HS 09/22/18 09/22/18 History Xl] Neclezyme-Forte 1 cap PO HS 09/22/18 09/22/18 History Sertraline [Zoloft] 100 mg PO HS 09/22/18 09/22/18 History Allergies Allergy/AdvReac Type Severity Reaction Status Date / Time diphenhydramine Allergy Unknown Verified 09/22/18 22:03 [From Benadryl] enalaprilat [From Vasotec] Allergy Unknown Verified 09/22/18 22:03 erythromycin base Allergy Unknown Verified 09/22/18 22:03 [From E-Mycin] hydrocodone Allergy Unknown Verified 09/22/18 22:03 ketorolac Allergy Unknown Verified 09/22/18 22:03 levofloxacin Allergy Unknown Verified 09/22/18 22:03 lorazepam [From Ativan] Allergy Unknown Verified 09/22/18 22:03 alprazolam [From Xanax] AdvReac Confusion Verified 09/22/18 22:03 codeine AdvReac Nausea & Verified 09/22/18 22:03 Vomiting diazepam [From Valium] AdvReac Unknown Verified 09/22/18 22:03 oxycodone [From Percocet] AdvReac Nausea & Verified 09/22/18 22:03 Vomiting Physical Examination - Vital Signs Vital Signs: Vital Signs Temp Pulse Pulse Resp BP BP Pulse Ox 09/23/18 14:10 97.6 F 80 15 175/91 100 09/23/18 08:38 97.6 F 106 H 15 161/69 98 09/23/18 02:50 81 16 127/82 100 09/22/18 21:12 98 F 98 24 174/100 100 Intake and Output 09/23/18 09/23/18 09/23/18 06:59 14:59 22:59 Intake Total 0 40 Balance 0 40 Intake: Oral 0 40 Other: # Voids 2 1 Results - Laboratory Findings CBC and BMP: 09/22/18 21:50 09/22/18 21:50 Abnormal Lab Findings: Abnormal Labs 09/22/18 09/22/18 09/23/18 21:50 21:50 00:00 MCHC 30.7 L BUN 25 H AST 46 H Urine Ketones 1+ H Urine Blood Trace H Urine Mucus Rare H
[2018-09-23] MEDS ORDERED: CARBIDOPA-LEVODOPA 25-100 MG 1 EACH TAB PO SCH (21:00)
[2018-09-23] MEDS ORDERED: GABAPENTIN 100 MG CAP PO SCH (21:00)
[2018-09-23] MEDS ORDERED: FAMOTIDINE 20 MG TAB PO SCH (21:00)
[2018-09-23] MEDS: CALCIUM CARBONATE 500 MG CHEWABLE PO SCH (22:33)
[2018-09-23] MEDS: risperiDONE 0.5 MG TAB PO SCH (22:34)
[2018-09-23] MEDS: SERTRALINE 100 MG TAB PO SCH (22:34)
[2018-09-23] MEDS: DONEPEZIL 10 MG TAB PO SCH (22:34)
[2018-09-23] MEDS: GABAPENTIN 100 MG CAP PO SCH (22:34)
[2018-09-23] MEDS: METOPROLOL SUCCINATE (ER) 25 MG TAB.ER.24H PO SCH (22:34)
[2018-09-23] MEDS: MEMANTINE 5 MG TAB PO SCH (22:34)
[2018-09-23] MEDS: ESTROGENS, CONJUGATED 0.3 MG TAB PO SCH (22:41)
[2018-09-23] MEDS: CHOLECALCIFEROL 1,000 UNIT TAB PO SCH (22:41)
[2018-09-23] MEDS: HEPARIN SODIUM,PORCINE 5,000 UNIT/ML 1 ML VIAL SQ SCH (22:41)
[2018-09-24] MEDS: risperiDONE 0.5 MG TAB PO SCH (08:08)
[2018-09-24] MEDS: CARBIDOPA-LEVODOPA 25-100 MG 1 EACH TAB PO SCH ×4 (08:10→21:28)
[2018-09-24] MEDS: PANTOPRAZOLE 40 MG TABLET PO SCH ×2 (08:10→17:08)
[2018-09-24] MEDS: MEMANTINE 5 MG TAB PO SCH (08:10)
[2018-09-24] MEDS: LOSARTAN 25 MG TAB PO SCH ×2 (08:10→21:28)
[2018-09-24] MEDS: ASPIRIN 81 MG PO SCH (08:11)
[2018-09-24] MEDS: LACTOBACILLUS ACIDOPH & BULGAR 1 EACH PACKET PO SCH (08:11)
[2018-09-24] MEDS: LEVOTHYROXINE 50 MCG TAB PO SCH (08:11)
[2018-09-24] MEDS: HEPARIN SODIUM,PORCINE 5,000 UNIT/ML 1 ML VIAL SQ SCH ×2 (08:11→21:29)
--- NOTE | 2018-09-24 15:43 | P.PN ---
Subjective Progress Note Date: 09/24/18 77-year-old female one of my office patient with past medical history of Parkinson disease, hypertension and dementia who has been cared for at home by family and caregiver she brought to [facility] department at [facility] late last night with 3 days increase worsening mental status with agitation anxiety insomnia not been able to rest worsening confusion with diffusion hallucination and worsening confusion. Apparently had slight decrease in Sinemet recently and was taking off Florinef according to the caregiver patient become much worse her daughter has travel out of town the last 48 hours and the caregiver has been taking care of her the whole time patient become more diffusional hallucinating no competitive behavior that trying to get out of the chair out of bed with no balance and recent fall with major injury. Patient ended up coming to the emergency department her workup originally with CAT scan of the brain showed small vessel disease only with no growth or hemorrhage, UA was negative chest x- ray didn't show any infiltrate and lab was negative. Patient was admitted to the hospital will consult neuro and psych and was start PT quickly and if worsening symptom might need to be moved to one of the geriatric psych unit. 09/24: Patient has been seen by Dr. 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 She does not recommend using Risperdal to target her paranoia and agitation due to the fact it may increase her motor symptoms. Suggest quetiapine starting at 12.5-25 mg as needed for agitation and assist with sleep. She recommended low dose around 8 PM. Nuplazid is another option to target psychotic symptoms. Patient is not a candidate for transfer to inpatient psychiatric unit but possibly medical psychiatric unit at the paranoia and agitation do not respond to medication adjustments. Patient has been seen by Dr. Barber and she agrees with avoiding Risperdal and Haldol. Agrees with quetiapine as recommended by psychiatry. Neurology has signed off this case. Patient has been afebrile, heart rate 60, blood pressure 155/80, pulse ox 100% on room air. Patient is much more alert today. She is confused but knows that she is in a hospital. She does not know the year or month. She states she slept well last night. She denies any nightmares or dreams. We will add and physical therapy and occupational therapy for possible subacute rehab. Otherwise discharge planning is home with current hired care. Patient's daughter is at bedside and states the patient has follow-up with Dr. Chandra at [facility] on September 13 regarding dyskinesia and it was recommended at that time for Sinemet 4 tablets daily, stop Florinef and decrease losartan. They also recommended discontinuing Namenda at that time. Patient is currently on losartan 25 mg twice daily and Toprol-XL 25 mg at bedtime. There was recommendations to start Seroquel which occurred Thursday via phone conversation. Patient had not yet started the medication. Note patient is also off Detrol for the past 1 week and plan is to follow-up with Dr. Cooper for Botox treatment. We will change dosing of Sinemet to the recommended dosing by Dr. Chandra with 1 at 8:30, 12:30, 4:30 and 8:30. Objective - Vital Signs Vital signs: Vital Signs Temp 97.3 F L 09/24/18 07:00 Pulse 68 09/24/18 07:00 Resp 15 09/24/18 07:00 BP 155/80 09/24/18 07:00 Pulse Ox 100 09/24/18 07:00 Intake & Output 09/23/18 09/24/18 09/24/18 18:59 06:59 18:59 Intake Total 40 760 Balance 40 760 Intake: Oral 40 760 Other: # Voids 1 - Exam Review of Systems CONSTITUTIONAL: Well-developed no acute respiratory distress. EYES: No icterus sclerae, no conjunctivitis. EARS, NOSE, MOUTH, THROAT, and FACE: No sore throat, lymphadenopathy, carotid bruits or deformity. RESPIRATORY: No SOB cough or wheezes. CARDIOVASCULAR: No CP, Palpitation, PND, Orthopnea, or angina. GASTROINTESTINAL: No Abd pain, Nausea or vomiting, no Diarrhea or constipation, No GI Bleed, no distention or masses. GENITOURINARY: Negative for Hematuria or UTI, no kidney stones. INTEGUMENT/BREAST: Negative for any muscular injury with mild osteoarthritis.. HEMATOLOGIC/LYMPHATIC: Negative for bleed or purpura. MUSCULOSKELTAL: Mild arthralgia and myalgia. NEURLOGICAL: No seizure but significant change mental status with significant tremor abnormal gait imbalance. BEHAVIORAL/PSYCH: Confusion and effusion and worsening mental status.. ENDOCRINE: Negative. General Appearance: Alert, cooperative, no distress, appears stated age. Very thin look like lost quite bed weight. Neck HEENT: Supple, no lymphadenopathy, no thyroid enlargement, no carotid bruits. Lungs: Clear to auscultation without crackles or wheezes mild rhonchi in the bases. Chest Wall: Decrease expansion with deep inspiration no tenderness and no deformity was found on exam, no costochondral pain or discomfort. Heart: Regular rate and rhythm, S1, S2 normal, no murmur, rub or gallop. Back: Significant curvature with scoliosis mild tenderness. Abdomen: Soft, non-tender, bowel sounds active all four quadrants, no masses, no organomegaly. Extremities: Trace edema and decreased pulses dorsalis pedis. Pulses: 2+ and symmetric. Skin: Skin color, texture, tugor normal, no rashes or lesions. Neurologic: Alert, confuse oriented 1-2 CN II-12 are intact moving all her 4 extremity has significant resting tremor severe abnormal facial expression not been able to do gait exam. - Labs CBC & Chem 7: 09/22/18 21:50 09/22/18 21:50 Assessment and Plan Plan: 1 acute psychotic disorder secondary to Parkinson's. Neurology and psychiatry consult appreciated. Risperdal will be discontinued and patient started on Seroquel 25 mg at 8 PM.. 2 severe advanced Parkinson disease: With medication adjusted recently patient has been on carbidopa levodopa 25/100 mg 4 times daily scheduled. 3 worsening confusion and delusion and psychosis. Discontinue Risperdal. Start Seroquel. 4 Alzheimer disease. Patient on Aricept. Namenda added. 5 hypothyroidism: Patient remain on levothyroxine 152-225 g daily. 6 hypertension: On metoprolol XL 25 mg a day along with losartan 25 mg twice a day continue medication. 7 chronic peripheral neuropathy: Has been on gabapentin which patient probably having some sort of side effect to gabapentin should be discontinued completely if possible. 8 recurrent depression. Continue sertraline 100 mg daily awaiting for psych for further adjustment medication if not will add Cymbalta 30 mg daily. 9 severe GERD/GI prophylaxis: Patient will be on pantoprazole 40 mg twice a day. 10 DVT prophylaxis: Patient will be on heparin 5000 units obtain his twice a day. CODE STATUS: Full code. Discharge plan: To be determined. Case management consult. PT and OT. Patient may require subacute rehab. Impression and plan of care have been directed as dictated by the signing physician. Anastacia Brandt nurse practitioner acting as scribe for signing physician.
--- NOTE | 2018-09-24 16:17 | P.PN ---
Progress Note - Text Progress Note Date: 09/24/18 Interval History: Patient is a 77-year-old female who is being seen in follow-up to a consultation. Patient's daughter was present today and provided more historical information. She states that the patient was recently seen at [facility] by Dr. Chandra a specialist in movement disorders. Patient's daughter states that the patient had been having a lot of difficulty with dyskinesia and adjustments in medications were either giving her new symptoms were not treating it. Patient was given a plan to treat her dyskinesia, the paranoia and and agitation at [facility] that they had yet to pick up operator the Seroquel prescription and had just seen the specialist there when the patient's daughter went out of town and the patient became increasingly agitated requiring a trip to the emergency room. Patient's daughter reports that today the patient has been the best she is seen as far as her dyskinesia, she's been resting this afternoon but has been cooperative with staff. Patient's daughter states that she also was diagnosed with Lewy body dementia. Mental Status: Patient was sitting in a reclining chair, resting comfortably and at one point told me that she didn't want to take antipsychotic medication. Patient states that she's feeling much better and states that the worst day was Thursday. She stated that she was feeling better, had been eating. Assessment: Patient's daughter was present and provided additional information, they're now seeing a movement specialist at [facility] and medication adjustments seem to help with her dyskinesia. Patient has not been agitated today and has been cooperating with nursing staff and resting comfortably. Patient's daughter informing the patient also has Lewy body dementia. Plan: I would recommend continuing to use quetiapine 12.5-25 mg as needed for agitation and/or sleep. Would avoid the use of any of the other antipsychotics with this patient due to her diagnosis of Lewy body dementia. Patient appears to be responding to medication adjustments, I will sign off the case.
[2018-09-24] MEDS: QUEtiapine 25 MG TAB PO SCH (18:10)
[2018-09-24] MEDS: SERTRALINE 100 MG TAB PO SCH (18:11)
[2018-09-24] MEDS ORDERED: QUEtiapine 25 MG TAB PO SCH (20:00)
[2018-09-24] MEDS: CALCIUM CARBONATE 500 MG CHEWABLE PO SCH (21:28)
[2018-09-24] MEDS: CHOLECALCIFEROL 1,000 UNIT TAB PO SCH (21:28)
[2018-09-24] MEDS: DONEPEZIL 10 MG TAB PO SCH (21:29)
[2018-09-24] MEDS: METOPROLOL SUCCINATE (ER) 25 MG TAB.ER.24H PO SCH (21:29)
[2018-09-24] MEDS: ESTROGENS, CONJUGATED 0.3 MG TAB PO SCH (21:29)
[2018-09-24] MEDS: GABAPENTIN 100 MG CAP PO SCH (21:29)
[2018-09-25] MEDS: CARBIDOPA-LEVODOPA 25-100 MG 1 EACH TAB PO SCH ×4 (08:22→20:13)
[2018-09-25] MEDS: LOSARTAN 25 MG TAB PO SCH (08:22)
[2018-09-25] MEDS: ASPIRIN 81 MG PO SCH (08:22)
[2018-09-25] MEDS: HEPARIN SODIUM,PORCINE 5,000 UNIT/ML 1 ML VIAL SQ SCH ×2 (08:23→20:36)
[2018-09-25] MEDS: LACTOBACILLUS ACIDOPH & BULGAR 1 EACH PACKET PO SCH (08:23)
[2018-09-25] MEDS: LEVOTHYROXINE 50 MCG TAB PO SCH (08:23)
[2018-09-25] MEDS: PANTOPRAZOLE 40 MG TABLET PO SCH ×2 (08:23→16:47)
--- NOTE | 2018-09-25 13:56 | P.PN ---
Subjective Progress Note Date: 09/25/18 77-year-old female one of my office patient with past medical history of Parkinson disease, hypertension and dementia who has been cared for at home by family and caregiver she brought to [facility] department at [facility] late last night with 3 days increase worsening mental status with agitation anxiety insomnia not been able to rest worsening confusion with diffusion hallucination and worsening confusion. Apparently had slight decrease in Sinemet recently and was taking off Florinef according to the caregiver patient become much worse her daughter has travel out of town the last 48 hours and the caregiver has been taking care of her the whole time patient become more diffusional hallucinating no competitive behavior that trying to get out of the chair out of bed with no balance and recent fall with major injury. Patient ended up coming to the emergency department her workup originally with CAT scan of the brain showed small vessel disease only with no growth or hemorrhage, UA was negative chest x- ray didn't show any infiltrate and lab was negative. Patient was admitted to the hospital will consult neuro and psych and was start PT quickly and if worsening symptom might need to be moved to one of the geriatric psych unit. 09/24: Patient has been seen by Dr. 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 She does not recommend using Risperdal to target her paranoia and agitation due to the fact it may increase her motor symptoms. Suggest quetiapine starting at 12.5-25 mg as needed for agitation and assist with sleep. She recommended low dose around 8 PM. Nuplazid is another option to target psychotic symptoms. Patient is not a candidate for transfer to inpatient psychiatric unit but possibly medical psychiatric unit at the paranoia and agitation do not respond to medication adjustments. Patient has been seen by Dr. Barber and she agrees with avoiding Risperdal and Haldol. Agrees with quetiapine as recommended by psychiatry. Neurology has signed off this case. Patient has been afebrile, heart rate 60, blood pressure 155/80, pulse ox 100% on room air. Patient is much more alert today. She is confused but knows that she is in a hospital. She does not know the year or month. She states she slept well last night. She denies any nightmares or dreams. We will add and physical therapy and occupational therapy for possible subacute rehab. Otherwise discharge planning is home with current hired care. Patient's daughter is at bedside and states the patient has follow-up with Dr. Chandra at [facility] on September 13 regarding dyskinesia and it was recommended at that time for Sinemet 4 tablets daily, stop Florinef and decrease losartan. They also recommended discontinuing Namenda at that time. Patient is currently on losartan 25 mg twice daily and Toprol-XL 25 mg at bedtime. There was recommendations to start Seroquel which occurred Thursday via phone conversation. Patient had not yet started the medication. Note patient is also off Detrol for the past 1 week and plan is to follow-up with Dr. Cooper for Botox treatment. We will change dosing of Sinemet to the recommended dosing by Dr. Chandra with 1 at 8:30, 12:30, 4:30 and 8:30. 09/25: Patient has been afebrile, blood pressure 165/89, pulse 76, pulse ox 96% on room air. Patient has been rechecked by Dr. Maki with recommending continuing Seroquel as needed for agitation and/or sleep. Would avoid any other antipsychotics with this patient due to her diagnosis of locally body dementia.. She has signed off the case. Patient took her medications this morning for the nurse. As she apparently has received only a few hours of sleep at most. Patient is found to be very tearful but no specific complaints. PT and OT to follow the patient with plan for subacute rehab on Thursday. Objective - Vital Signs Vital signs: Vital Signs Temp 97.9 F 09/25/18 07:00 Pulse 76 09/25/18 07:00 Resp 14 09/25/18 07:00 BP 165/89 09/25/18 07:00 Pulse Ox 96 09/25/18 07:00 Intake & Output 09/24/18 09/25/18 09/25/18 18:59 06:59 18:59 Intake Total 118 Balance 118 Intake: Oral 118 Other: Voiding Method Toilet # Voids 1 1 1 - Exam Review of Systems CONSTITUTIONAL: Well-developed no acute respiratory distress. EYES: No icterus sclerae, no conjunctivitis. EARS, NOSE, MOUTH, THROAT, and FACE: No sore throat, lymphadenopathy, carotid bruits or deformity. RESPIRATORY: No SOB cough or wheezes. CARDIOVASCULAR: No CP, Palpitation, PND, Orthopnea, or angina. GASTROINTESTINAL: No Abd pain, Nausea or vomiting, no Diarrhea or constipation, No GI Bleed, no distention or masses. GENITOURINARY: Negative for Hematuria or UTI, no kidney stones. INTEGUMENT/BREAST: Negative for any muscular injury with mild osteoarthritis.. HEMATOLOGIC/LYMPHATIC: Negative for bleed or purpura. MUSCULOSKELTAL: Mild arthralgia and myalgia. NEURLOGICAL: No seizure but significant change mental status with significant tremor abnormal gait imbalance. BEHAVIORAL/PSYCH: Confusion and tearful ENDOCRINE: Negative. General Appearance: Alert, cooperative, no distress, appears stated age. Very thin look like lost quite bed weight. Neck HEENT: Supple, no lymphadenopathy, no thyroid enlargement, no carotid bruits. Lungs: Clear to auscultation without crackles or wheezes mild rhonchi in the bases. Chest Wall: Decrease expansion with deep inspiration no tenderness and no deformity was found on exam, no costochondral pain or discomfort. Heart: Regular rate and rhythm, S1, S2 normal, no murmur, rub or gallop. Back: Significant curvature with scoliosis mild tenderness. Abdomen: Soft, non-tender, bowel sounds active all four quadrants, no masses, no organomegaly. Extremities: Trace edema and decreased pulses dorsalis pedis. Pulses: 2+ and symmetric. Skin: Skin color, texture, tugor normal, no rashes or lesions. 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 Neurology and psychiatry consult appreciated. Risperdal will be discontinued and patient started on Seroquel 25 mg at 8 PM. consultants have sign off this case. 2 severe advanced Parkinson disease: With medication adjusted recently patient has been on carbidopa levodopa 25/100 mg 4 times daily scheduled. 3 worsening confusion and delusion and psychosis. Discontinue Risperdal. Start Seroquel. 4 [place] body dementia, vascular dementia. Patient on Aricept which will be continued. Namenda discontinued. 5 hypothyroidism: Patient remain on levothyroxine 152-225 g daily. 6 hypertension: On metoprolol XL 25 mg a day along with losartan 25 mg twice a day continue medication. 7 chronic peripheral neuropathy: Has been on gabapentin which patient probably having some sort of side effect to gabapentin should be discontinued completely if possible. 8 recurrent depression. Continue sertraline 100 mg daily awaiting for psych for further adjustment medication if not will add Cymbalta 30 mg daily. 9 severe GERD/GI prophylaxis: Patient will be on pantoprazole 40 mg twice a day. 10 DVT prophylaxis: Patient will be on heparin 5000 units obtain his twice a day. CODE STATUS: Full code. Discharge plan: subacute rehab on Thursday. Case management consult. PT and OT. Impression and plan of care have been directed as dictated by the signing physician. Anastacia Brandt nurse practitioner acting as scribe for signing physician.
[2018-09-25] MEDS: QUEtiapine 25 MG TAB PO SCH (20:11)
[2018-09-25] MEDS: METOPROLOL SUCCINATE (ER) 25 MG TAB.ER.24H PO SCH (20:12)
[2018-09-25] MEDS: SERTRALINE 100 MG TAB PO SCH (20:12)
[2018-09-25] MEDS: GABAPENTIN 100 MG CAP PO SCH (20:13)
[2018-09-25] MEDS: ESTROGENS, CONJUGATED 0.3 MG TAB PO SCH (20:13)
[2018-09-25] MEDS: DONEPEZIL 10 MG TAB PO SCH (20:13)
[2018-09-25] MEDS: CHOLECALCIFEROL 1,000 UNIT TAB PO SCH (20:35)
[2018-09-25] MEDS: CALCIUM CARBONATE 500 MG CHEWABLE PO SCH (20:36)
[2018-09-26] MEDS ORDERED: LEVOTHYROXINE 50 MCG TAB PO SCH (06:30)
[2018-09-26] MEDS: LOSARTAN 25 MG TAB PO SCH (08:27)
[2018-09-26] MEDS: CARBIDOPA-LEVODOPA 25-100 MG 1 EACH TAB PO SCH ×4 (08:27→20:32)
[2018-09-26] MEDS: PANTOPRAZOLE 40 MG TABLET PO SCH ×2 (08:27→17:41)
[2018-09-26] MEDS: ASPIRIN 81 MG PO SCH (08:27)
[2018-09-26] MEDS: LACTOBACILLUS ACIDOPH & BULGAR 1 EACH PACKET PO SCH (08:27)
[2018-09-26] MEDS: HEPARIN SODIUM,PORCINE 5,000 UNIT/ML 1 ML VIAL SQ SCH ×2 (08:28→20:33)
--- NOTE | 2018-09-26 11:49 | P.PN ---
Subjective Progress Note Date: 09/26/18 77-year-old female one of my office patient with past medical history of Parkinson disease, hypertension and dementia who has been cared for at home by family and caregiver she brought to [facility] department at [facility] late last night with 3 days increase worsening mental status with agitation anxiety insomnia not been able to rest worsening confusion with diffusion hallucination and worsening confusion. Apparently had slight decrease in Sinemet recently and was taking off Florinef according to the caregiver patient become much worse her daughter has travel out of town the last 48 hours and the caregiver has been taking care of her the whole time patient become more diffusional hallucinating no competitive behavior that trying to get out of the chair out of bed with no balance and recent fall with major injury. Patient ended up coming to the emergency department her workup originally with CAT scan of the brain showed small vessel disease only with no growth or hemorrhage, UA was negative chest x- ray didn't show any infiltrate and lab was negative. Patient was admitted to the hospital will consult neuro and psych and was start PT quickly and if worsening symptom might need to be moved to one of the geriatric psych unit. 09/24: Patient has been seen by Dr. 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 She does not recommend using Risperdal to target her paranoia and agitation due to the fact it may increase her motor symptoms. Suggest quetiapine starting at 12.5-25 mg as needed for agitation and assist with sleep. She recommended low dose around 8 PM. Nuplazid is another option to target psychotic symptoms. Patient is not a candidate for transfer to inpatient psychiatric unit but possibly medical psychiatric unit at the paranoia and agitation do not respond to medication adjustments. Patient has been seen by Dr. Barber and she agrees with avoiding Risperdal and Haldol. Agrees with quetiapine as recommended by psychiatry. Neurology has signed off this case. Patient has been afebrile, heart rate 60, blood pressure 155/80, pulse ox 100% on room air. Patient is much more alert today. She is confused but knows that she is in a hospital. She does not know the year or month. She states she slept well last night. She denies any nightmares or dreams. We will add and physical therapy and occupational therapy for possible subacute rehab. Otherwise discharge planning is home with current hired care. Patient's daughter is at bedside and states the patient has follow-up with Dr. Chandra at [facility] on September 13 regarding dyskinesia and it was recommended at that time for Sinemet 4 tablets daily, stop Florinef and decrease losartan. They also recommended discontinuing Namenda at that time. Patient is currently on losartan 25 mg twice daily and Toprol-XL 25 mg at bedtime. There was recommendations to start Seroquel which occurred Thursday via phone conversation. Patient had not yet started the medication. Note patient is also off Detrol for the past 1 week and plan is to follow-up with Dr. Cooper for Botox treatment. We will change dosing of Sinemet to the recommended dosing by Dr. Chandra with 1 at 8:30, 12:30, 4:30 and 8:30. 09/25: Patient has been afebrile, blood pressure 165/89, pulse 76, pulse ox 96% on room air. Patient has been rechecked by Dr. Maki with recommending continuing Seroquel as needed for agitation and/or sleep. Would avoid any other antipsychotics with this patient due to her diagnosis of locally body dementia.. She has signed off the case. Patient took her medications this morning for the nurse. As she apparently has received only a few hours of sleep at most. Patient is found to be very tearful but no specific complaints. PT and OT to follow the patient with plan for subacute rehab on Thursday. 09/26: Patient slept well during the night but has been quite aggressive this morning. Daughter will be coming in to sit with her soon. Nursing will attempt to give her medication shortly. Noted patient is trying to dial the phone random numbers and make a phone call to her mother. No medication changes will be made for today. Patient has been afebrile, heart rate 89, blood pressure 120/72, pulse ox 95% on room air. Objective - Vital Signs Vital signs: Vital Signs Temp 98.1 F 09/26/18 07:00 Pulse 89 09/26/18 07:00 Resp 14 09/26/18 07:00 BP 120/72 09/26/18 07:00 Pulse Ox 95 09/26/18 07:00 Intake & Output 09/25/18 09/26/18 09/26/18 18:59 06:59 18:59 Intake Total 323 75 Balance 323 75 Intake: Oral 323 75 Other: Voiding Method Toilet Toilet # Voids 2 2 - Exam Review of Systems CONSTITUTIONAL: Well-developed no acute respiratory distress. EYES: No icterus sclerae, no conjunctivitis. EARS, NOSE, MOUTH, THROAT, and FACE: No sore throat, lymphadenopathy, carotid bruits or deformity. RESPIRATORY: No SOB cough or wheezes. CARDIOVASCULAR: No CP, Palpitation, PND, Orthopnea, or angina. GASTROINTESTINAL: No Abd pain, Nausea or vomiting, no Diarrhea or constipation, No GI Bleed, no distention or masses. GENITOURINARY: Negative for Hematuria or UTI, no kidney stones. INTEGUMENT/BREAST: Negative for any muscular injury with mild osteoarthritis.. HEMATOLOGIC/LYMPHATIC: Negative for bleed or purpura. MUSCULOSKELTAL: Mild arthralgia and myalgia. NEURLOGICAL: No seizure but significant change mental status with significant tremor abnormal gait imbalance. BEHAVIORAL/PSYCH: Confusion ENDOCRINE: Negative. General Appearance: Alert, cooperative, no distress, appears stated age. Very thin Neck HEENT: Supple, no lymphadenopathy, no thyroid enlargement, no carotid bruits. Lungs: Clear to auscultation without crackles or wheezes mild rhonchi in the bases. Chest Wall: Decrease expansion with deep inspiration no tenderness and no deformity was found on exam, no costochondral pain or discomfort. Heart: Regular rate and rhythm, S1, S2 normal, no murmur, rub or gallop. Back: Significant curvature with scoliosis mild tenderness. Abdomen: Soft, non-tender, bowel sounds active all four quadrants, no masses, no organomegaly. Extremities: Trace edema and decreased pulses dorsalis pedis. Pulses: 2+ and symmetric. Skin: Skin color, texture, tugor normal, no rashes or lesions. 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 Neurology and psychiatry consult appreciated. Risperdal will be discontinued and patient started on Seroquel 25 mg at 8 PM. consultants have sign off this case. No changes in medications. 2 severe advanced Parkinson disease: With medication adjusted recently patient has been on carbidopa levodopa 25/100 mg 4 times daily scheduled. 3 worsening confusion and delusion and psychosis. Discontinue Risperdal. Start Seroquel. 4 [place] body dementia, vascular dementia. Patient on Aricept which will be c ontinued. Namenda discontinued. 5 hypothyroidism: Patient remain on levothyroxine 152-225 g daily. 6 hypertension: On metoprolol XL 25 mg a day along with losartan 25 mg twice a day continue medication. 7 chronic peripheral neuropathy: Has been on gabapentin which patient probably having some sort of side effect to gabapentin should be discontinued completely if possible. 8 recurrent depression. Continue sertraline 100 mg daily awaiting for psych for further adjustment medication if not will add Cymbalta 30 mg daily. 9 severe GERD/GI prophylaxis: Patient will be on pantoprazole 40 mg twice a day. 10 DVT prophylaxis: Patient will be on heparin 5000 units obtain his twice a day. CODE STATUS: Full code. Discharge plan: subacute rehab on Thursday. Case management consult. PT and OT. Impression and plan of care have been directed as dictated by the signing physician. Anastacia Brandt nurse practitioner acting as scribe for signing physician.
[2018-09-26] MEDS ORDERED: LORazepam 0.5 MG TAB PO STA (20:19)
[2018-09-26] MEDS: QUEtiapine 25 MG TAB PO SCH (20:30)
[2018-09-26] MEDS: SERTRALINE 100 MG TAB PO SCH (20:31)
[2018-09-26] MEDS: DONEPEZIL 10 MG TAB PO SCH (20:31)
[2018-09-26] MEDS: METOPROLOL SUCCINATE (ER) 25 MG TAB.ER.24H PO SCH (20:32)
[2018-09-26] MEDS: ESTROGENS, CONJUGATED 0.3 MG TAB PO SCH (20:32)
[2018-09-26] MEDS: CHOLECALCIFEROL 1,000 UNIT TAB PO SCH (20:32)
[2018-09-26] MEDS: CALCIUM CARBONATE 500 MG CHEWABLE PO SCH (20:32)
[2018-09-26] MEDS: GABAPENTIN 100 MG CAP PO SCH (20:32)
[2018-09-27] MEDS: CARBIDOPA-LEVODOPA 25-100 MG 1 EACH TAB PO SCH ×3 (08:29→16:37)
[2018-09-27] MEDS: LEVOTHYROXINE 50 MCG TAB PO SCH (08:29)
[2018-09-27] MEDS: LOSARTAN 25 MG TAB PO SCH (08:29)
[2018-09-27] MEDS: ASPIRIN 81 MG PO SCH (08:32)
[2018-09-27] MEDS: LACTOBACILLUS ACIDOPH & BULGAR 1 EACH PACKET PO SCH (08:33)
[2018-09-27] MEDS: PANTOPRAZOLE 40 MG TABLET PO SCH ×2 (08:33→16:37)
[2018-09-27] MEDS: HEPARIN SODIUM,PORCINE 5,000 UNIT/ML 1 ML VIAL SQ SCH (08:45)
--- NOTE | 2018-09-27 11:36 | P.DS ---
Providers Date of admission: 09/24/18 10:38 Expected date of discharge: 09/27/18 Attending physician: Darius Bryan Consults: 09/23/18 02:43 Consult Physician Routine Consulting Provider: Keyl Maki Consult Reason/Comments: psychosis Do you want consulting provider notified?: Yes Consult Physician Routine Consulting Provider: Vanessa Barber Consult Reason/Comments: Parkinson's disease with psychosis and insomnia Do you want consulting provider notified?: Yes Primary care physician: Darius Bryan [place] [facility] Course: 77-year-old female one of my office patient with past medical history of Parkinson disease, hypertension and dementia who has been cared for at home by family and caregiver she brought to [facility] department at [facility] late last night with 3 days increase worsening mental status with agitation anxiety insomnia not been able to rest worsening confusion with diffusion hallucination and worsening confusion. Apparently had slight decrease in Sinemet recently and was taking off Florinef according to the caregiver patient become much worse her daughter has travel out of town the last 48 hours and the caregiver has been taking care of her the whole time patient become more diffusional hallucinating no competitive behavior that trying to get out of the chair out of bed with no balance and recent fall with major injury. Patient ended up coming to the emergency department her workup originally with CAT scan of the brain showed small vessel disease only with no growth or hemorrhage, UA was negative chest x- ray didn't show any infiltrate and lab was negative. Patient was admitted to the hospital will consult neuro and psych and was start PT quickly and if worsening symptom might need to be moved to one of the geriatric psych unit. 09/24: Patient has been seen by Dr. 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 She does not recommend using Risperdal to target her paranoia and agitation due to the fact it may increase her motor symptoms. Suggest quetiapine starting at 12.5-25 mg as needed for agitation and assist with sleep. She recommended low dose around 8 PM. Nuplazid is another option to target psychotic symptoms. Patient is not a candidate for transfer to inpatient psychiatric unit but possibly medical psychiatric unit at the paranoia and agitation do not respond to medication adju stments. Patient has been seen by Dr. Barber and she agrees with avoiding Risperdal and Haldol. Agrees with quetiapine as recommended by psychiatry. Neurology has signed off this case. Patient has been afebrile, heart rate 60, blood pressure 155/80, pulse ox 100% on room air. Patient is much more alert today. She is confused but knows that she is in a hospital. She does not know the year or month. She states she slept well last night. She denies any nightmares or dreams. We will add and physical therapy and occupational therapy for possible subacute rehab. Otherwise discharge planning is home with current hired care. Patient's daughter is at bedside and states the patient has follow-up with Dr. Chandra at [facility] on September 13 regarding dyskinesia and it was recommended at that time for Sinemet 4 tablets daily, stop Florinef and decrease losartan. They also recommended discontinuing Namenda at that time. Patient is currently on losartan 25 mg twice daily and Toprol-XL 25 mg at bedtime. There was recommendations to start Seroquel which occurred Thursday via phone conversation. Patient had not yet started the medication. Note patient is also off Detrol for the past 1 week and plan is to follow-up with Dr. Cooper for Botox treatment. We will change dosing of Sinemet to the recommended dosing by Dr. Chandra with 1 at 8:30, 12:30, 4:30 and 8:30. 09/25: Patient has been afebrile, blood pressure 165/89, pulse 76, pulse ox 96% on room air. Patient has been rechecked by Dr. Maki with recommending continuing Seroquel as needed for agitation and/or sleep. Would avoid any other antipsychotics with this patient due to her diagnosis of locally body dementia.. She has signed off the case. Patient took her medications this morning for the nurse. As she apparently has received only a few hours of sleep at most. Patient is found to be very tearful but no specific complaints. PT and OT to follow the patient with plan for subacute rehab on Thursday. 09/26: Patient slept well during the night but has been quite aggressive this morning. Daughter will be coming in to sit with her soon. Nursing will attempt to give her medication shortly. Noted patient is trying to dial the phone random numbers and make a phone call to her mother. No medication changes will be made for today. Patient has been afebrile, heart rate 89, blood pressure 120/72, pulse ox 95% on room air. 09/27: Patient's daughter is at the bedside. She states the patient slept well last night after she received Ativan. Patient refused to take her oral occasions this morning. Daughter states that patient is calm now but just had a"manic" episode. She is concerned regarding increased rigidity and we will be increasing her 8:30 Sinemet to one and half tablets. Daughter has decided to make the patient hospice care and we will plan for discharge to [facility] under hospice. Awaiting for arrangements to be completed. 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 2 severe advanced Parkinson disease 3 worsening confusion and acute delusion and psychosis. 4 Lewey body dementia, vascular dementia. 5 hypothyroidism 6 hypertension 7 chronic peripheral neuropathy 8 recurrent depression 9 severe GERD Discharge plan: [facility] with hospice care under the care of Dr. Bryan. Impression and plan of care have been directed as dictated by the signing physician. Anastacia Brandt nurse practitioner acting as scribe for signing physician. Patient Condition at Discharge: Good Plan - Discharge Summary New Discharge Prescriptions: New LORazepam ORAL CONC [Ativan Intensol] 2 mg PO Q4HR PRN #30 ml PRN Reason: Anxiety Memantine HCl [Namenda Xr] 7 mg PO DAILY #30 cap.spr.24 MORPHINE ORAL SYLVIA CONC 20mg/mL [Roxanol Oral Soln Conc 20MG/ML] 5 mg PO Q4H PRN #30 ml PRN Reason: Pain QUEtiapine [SEROquel] 25 mg PO 1999 #30 tab Carbidopa-Levodopa 25-100 mg [Sinemet 25-100 mg] 1 each PO 1230,1630,2030 tab Continue L.acidoph,Paracasei, B.lactis [Probiotic] 1 cap PO DAILY Aspirin [Adult Low Dose Aspirin EC] 162 mg PO DAILY Omeprazole [PriLOSEC] 20 mg PO AC-BID Losartan Potassium [Cozaar] 25 mg PO BID Donepezil HCl [Aricept] 10 mg PO HS Sertraline [Zoloft] 100 mg PO HS Metoprolol Succinate (ER) [Toprol XL] 25 mg PO HS Levothyroxine Sodium [Synthroid] 150 mcg PO MOTUWETHFRSA Levothyroxine Sodium [Synthroid] 225 mcg PO INTERIANO Neclezyme-Forte 1 cap PO HS Gabapentin [Neurontin] 200 mg PO HS #3 cap Changed Carbidopa-Levodopa 25-100 mg [Sinemet 25-100 mg] 1.5 tab PO 0830 #0 Discontinued Estrogens, Conjugated [Premarin] 0.3 mg PO HS Cholecalciferol [Vitamin D3] 2,000 unit PO HS Calcium Carbonate [Calcium] 600 mg PO HS Famotidine [Pepcid] 20 mg PO HS Carbidopa-Levodopa 25-100 mg [Sinemet 25-100] 2 tab PO BID Discharge Medication List Aspirin [Adult Low Dose Aspirin EC] 162 mg PO DAILY 05/08/16 [History] L.acidoph,Paracasei, B.lactis [Probiotic] 1 cap PO DAILY 05/08/16 [History] Omeprazole [PriLOSEC] 20 mg PO AC-BID 05/08/16 [History] Donepezil HCl [Aricept] 10 mg PO HS 09/22/18 [History] Levothyroxine Sodium [Synthroid] 150 mcg PO MOTUWETHFRSA 09/22/18 [History] Levothyroxine Sodium [Synthroid] 225 mcg PO INTERIANO 09/22/18 [History] Losartan Potassium [Cozaar] 25 mg PO BID 09/22/18 [History] Metoprolol Succinate (ER) [Toprol XL] 25 mg PO HS 09/22/18 [History] Neclezyme-Forte 1 cap PO HS 09/22/18 [History] Sertraline [Zoloft] 100 mg PO HS 09/22/18 [History] Carbidopa-Levodopa 25-100 mg [Sinemet 25-100 mg] 1 each PO 1230,1630,2030 tab 09/27/18 [Rx] Carbidopa-Levodopa 25-100 mg [Sinemet 25-100 mg] 1.5 tab PO 0830 #0 09/27/18 [Rx] Gabapentin [Neurontin] 200 mg PO HS #3 cap 09/27/18 [Rx] LORazepam ORAL CONC [Ativan Intensol] 2 mg PO Q4HR PRN #30 ml 09/27/18 [Rx] MORPHINE ORAL SYLVIA CONC 20mg/mL [Roxanol Oral Soln Conc 20MG/ML] 5 mg PO Q4H PRN #30 ml 09/27/18 [Rx] Memantine HCl [Namenda Xr] 7 mg PO DAILY #30 cap.spr.24 07/22/19 [Rx] QUEtiapine [SEROquel] 25 mg PO 1999 #30 tab 09/27/18 [Rx] Follow up Appointment(s)/Referral(s): Darius Bryan MD [Primary Care Provider] - 1 Week Raulito Taylor [NON-STAFF] - As Needed Patient Instructions/Handouts: Generalized Anxiety Disorder (ED) Discharge Disposition: TRANSFER TO SNF/ECF
[2018-09-27 14:46] VITALS: BP 147/78; PULSE 75; RESP 18; TEMP 97.7
== END 2018-09-27 18:23 | DRG 57 ==
LOC: EC 21:03 → 4SSUR 09-23 02:42 → OBSVTOIN 09-24 10:38
PROVIDERS: ADMIT Internal Medicine Geriatric Medicine; ATTEND Internal Medicine Geriatric Medicine
DX: G31.83 Neurocognitive disorder with Lewy bodies (principal); F02.81 Dementia in other diseases classified elsewhere, unspecified severity, with behavioral disturbance; F33.9 Major depressive disorder, recurrent, unspecified; Z51.5 Encounter for palliative care; G62.9 Polyneuropathy, unspecified; F01.50 Vascular dementia, unspecified severity, without behavioral disturbance, psychotic disturbance, mood disturbance, and anxiety; I73.89 Other specified peripheral vascular diseases; I10 Essential (primary) hypertension; F41.9 Anxiety disorder, unspecified; K21.9 Gastro-esophageal reflux disease without esophagitis; E89.0 Postprocedural hypothyroidism; G47.01 Insomnia due to medical condition; Z79.82 Long term (current) use of aspirin; Z79.890 Hormone replacement therapy; Z79.899 Other long term (current) drug therapy; Z90.710 Acquired absence of both cervix and uterus; Z85.850 Personal history of malignant neoplasm of thyroid; Z88.1 Allergy status to other antibiotic agents; Z88.5 Allergy status to narcotic agent; Z88.8 Allergy status to other drugs, medicaments and biological substances; Z82.49 Family history of ischemic heart disease and other diseases of the circulatory system
CPT/HCPCS: 36415; 70450; 71045; 80053; 81001; 83605; 84484; 85025; 85610; 85730; 93005; 99285